=== PATIENT | male | born 1955 | race Caucasian/White ===

== ENCOUNTER → 2023-10-27 07:15 | Outpatient (REF) | payer OTHER, SELFPAY | LOC: RAD 07:15 | PROVIDERS: ATTENDING PHYSICIAN Internal Medicine Cardiovascular Disease; FAMILY PHYSICIAN Internal Medicine | DX: I10 Essential (primary) hypertension (principal); I50.30 Unspecified diastolic (congestive) heart failure; I25.10 Atherosclerotic heart disease of native coronary artery without angina pectoris; I65.23 Occlusion and stenosis of bilateral carotid arteries | CPT/HCPCS: 93880 ==

== ENCOUNTER → 2023-11-23 08:13 | Outpatient (REF) | payer OTHER, SELFPAY | LOC: HWRAD 08:13 | PROVIDERS: ATTENDING PHYSICIAN Surgery Vascular Surgery; FAMILY PHYSICIAN Internal Medicine | DX: I65.23 Occlusion and stenosis of bilateral carotid arteries (principal) | CPT/HCPCS: 70496; 70498; Q9967 ==

== ENCOUNTER → 2023-11-28 13:31 | Outpatient (REF) | payer OTHER, SELFPAY | LOC: HWRAD 13:31 | PROVIDERS: ATTENDING PHYSICIAN Internal Medicine Critical Care Medicine; FAMILY PHYSICIAN Internal Medicine | DX: Z87.891 Personal history of nicotine dependence (principal) | CPT/HCPCS: 71271 ==

== ENCOUNTER 2024-02-07 06:06 | Inpatient (IN) | payer OTHER, SELFPAY ==
[2024-02-02 09:43] VITALS: BMI 37.9
[2024-02-02 10:22] LABS: % Basophils 0.9 % (0-2); % Eosinophils 4.9 % (0-6); % Immature Granulocytes 0.2 % (0-0.5); % Lymphocytes 16.5 % (20.5-51.1); % Monocytes 7.7 % (1.7-9.3); % Neutrophils 69.8 % (42.2-75.2); Absolute Basophils 0.1 10^3/uL (0-0.2); Absolute Eosinophils 0.3 10^3/uL (0-0.7); Absolute Lymphocytes 0.9 10^3/uL (1.2-3.4); Absolute Monocytes 0.4 10^3/uL (0.1-0.6); Hematocrit 44.6 % (39.0-52.0); Hemoglobin 14.7 g/dL (13.0-18.0); Mean Corpuscular Hgb 29.1 pg (27.0-31.0); Mean Corpuscular Volume 88.1 fL (80.0-94.0); Mean Platelet Volume 9.7 fL (7.4-10.4); Nucleated Red Blood Cells % 0 % (-); Platelet Count 169 10^3/uL (130-400); Red Blood Cell Count 5.06 10^6/uL (4.70-6.10); Red Cell Dist. Width 13.5 % (11.5-14.5); White Blood Cell Count 5.7 10^3/uL (4.8-10.8)
[2024-02-02 10:40] LABS: INR 0.97; PT 12.9 Sec (11.4-14.6)
[2024-02-02 10:43] LABS: Blood Urea Nitrogen 22 mg/dl (9-20); Calcium 9.2 mg/dl (8.4-10.2); Carbon Dioxide 29 mmol/L (22-30); Chloride 105 mmol/L (98-107); Estimated Creatinine Clearance 97 ml/min; Glucose 99 mg/dl (70-99); Potassium 4.1 mmol/L (3.5-5.1); Sodium 140 mmol/L (135-145); eGFR > 60.00
[2024-02-07] VITALS (11 sets, daily range): BP systolic 97–192; BP diastolic 53–96; BMI 37.8; BMI 37.7
[2024-02-07] MEDS: NSS 500 IV (06:44)
[2024-02-07] MEDS: PERIDEX 0.12% ORAL RINSE 15 ML PO (06:44)
[2024-02-07] MEDS: BACTROBAN NASAL 1 GRAM NASAL (06:44)
--- NOTE | 2024-02-07 07:10 | PTCARENOTE ---
patient's blood pressure elevated (212/93) and has been since arrival. RN made MD dumont aware, stated anesthesia team will continue to monitor.
--- NOTE | 2024-02-07 07:15 | W.SUR.PREOP ---
Pre-Operative Surgical Note
-
I have examined this patient prior to the performance of the scheduled procedure.
The patient's condition is unchanged from the time of the current History and
Physical and the patient is able to undergo the scheduled procedure.
[2024-02-07 08:58] LABS: ACT-LR - POC 261 Seconds (116-155)
[2024-02-07 09:28] LABS: ACT-LR - POC 277 Seconds (116-155)
--- NOTE | 2024-02-07 10:12 | OR.RPT ---
Operative Report
Operative Report
Date of Operation: 02/07/2024
Pre Op Diagnosis: Asymptomatic right carotid artery stenosis
Post Op Diagnosis: Asymptomatic right carotid artery stenosis
Procedure: RIGHT carotid endarterectomy with patch angioplasty using bovine pericardium
Surgeon: Daniel Cantor III, MD
In Home Caregiver: Steven Mcintyre MD PhD, PGY1
Anesthesia: General
Complications: None
History and Indications for Procedure: 68-year-old male with asymptomatic right carotid artery stenosis
Procedure in Detail: Neal Cash was correctly identified and placed supine on the operating table. After adequate induction of anesthesia the right neck was positioned, prepped and draped in the usual sterile fashion. Preoperative antibiotics
were administered. A timeout procedure was performed with the nursing and anesthesia staff confirming the patients identity as well as the nature and laterality of the procedure.
The carotid bifurcation was marked with ultrasound at the beginning of the case. The incision was planned accordingly. An incision was made along the anterior border of the right sternocleidomastoid muscle. Electrocautery was used to divide the
subcutaneous tissue and platysma. The carotid sheath was entered with sharp dissection. The internal jugular vein was retracted laterally. The vagus nerve was identified and protected throughout the case. The common carotid artery was identified at
the base of this incision and carefully encircled with a vessel loop. The patient was systemically heparinized. The dissection was continued distally towards the carotid bifurcation. The facial vein was skeletonized, ligated and divided between ties
and clips. The proximal external carotid artery was encircled with a vessel loop. The distal internal carotid artery was encircled with a vessel loop at a soft spot on the artery beyond the plaque. The hypoglossal nerve was identified and protected.
The internal vessel loop was secured followed by the common and external. An arteriotomy was made on the distal common carotid artery with an 11-blade. This was extended proximally and distally with De La Torre scissors. The arteriotomy was extended
distally through the plaque to an area of normal appearing internal carotid artery. The distal vessel loop was replaced with a short tip hockey-stick type vascular clamp. An endarterectomy was performed with a [place] elevator in the standard
fashion. The proximal extent of the plaque was transected with scissors. The distal end of the plaque in the internal carotid artery feathered very nicely with no distal intimal flap identified. The plaque extending into the external carotid artery
was everted. Once the plaque was fully removed the endarterectomy plane was irrigated with heparinized saline and any loose fronds of tissue were removed. A pre-cut piece of bovine pericardium was sewn in place using a running 6-0 Prolene suture.
Prior to the completion of the patch the common carotid was allowed to forward bleed and the external was allowed to back bleed. The area under the patch was irrigated with heparinized saline to remove any potential thrombus or debris. The
anastomosis was completed.
The external vessel loop was released first, followed by the common and then the internal. There was an excellent pulse in the distal internal carotid artery. An excellent quality Doppler signal in the distal internal carotid artery was also
confirmed. The patch suture line was closely inspected for hemostasis and was achieved. Protamine was administered. Hemostasis was achieved in the wound bed. The wound was irrigated with saline solution.
The wound was then closed in layers. Sterile dressings were applied. The patient awoke from anesthesia with no immediate neuro deficits and was taken to the PACU in stable condition.
Attestation: I was present and responsible for the entire procedure
Signed:
Daniel Cantor III, MD
[facility]
[phone] (bokk)
--- NOTE | 2024-02-07 10:31 | W.IMMPOSTOP ---
Surgical Immed Post Op Note
-
Primary Surgeon: Dr. Daniel Cantor III, MD
Assisting Surgeon: Dr. Steven Mcintyre MD, PhD (PGY-1)
Pre-op Diagnosis: Right carotid artery stenosis
Post-op Diagnosis: Right carotid artery stenosis
Procedure Performed: Right carotid endarterectomy with bovine patch angioplasty
Anesthesia Type: General
Specimen / Cultures: None
Estimated Blood Loss: 25cc
Complications: None
Operative Findings: The patient was brought to the OR and placed in the supine position. After anesthesia induction, neuromonitoring placement, and placement of a right radial arterial line, ultrasound guidance was used to identify the common
carotid artery, the bifurcation, and proximal external and internal carotid arteries. This was marked at the skin level. The patient was then prepped and draped in usual sterile fashion. After incision, electrocautery and sharp dissection was used
to expose the right common carotid artery. A blue vessel loop was passed around the common carotid for proximal control. Red vessel loops were then passed around the superior thyroid artery, external carotid artery, and internal carotid artery. The
vessels were clamped and arteriotomy was made on the right common carotid artery. This was extended cranially and caudally using fernandez scissors. A freer was used to perform the endarterectomy. Then a piece of bovine pericardial patch was brought to
the field. A running 6-0 prolene suture was used to perform a patch angioplasty. At the completion of the patch angioplasty, the clamps were removed and hemostasis was achieved. Robust doppler signals were heard on the internal and external carotid
arteries. Soft tissues and the skin were closed with suture layers and skin glue on the surface skin. At the conclusion of the case, the patient demonstrated equal and symmetric motor function of his lower and upper extremities and tongue. The
patient was transported to the PACU in stable condition.
[2024-02-07 10:50] LABS: Hemoglobin 13.3 g/dL (13.0-18.0); Mean Corp Hgb Conc. 34.1 g/dL (33.0-37.0); Mean Corpuscular Hgb 29.5 pg (27.0-31.0); Mean Corpuscular Volume 86.5 fL (80.0-94.0); Platelet Count 156 10^3/uL (130-400); Red Blood Cell Count 4.51 10^6/uL (4.70-6.10); Red Cell Dist. Width 13.6 % (11.5-14.5); White Blood Cell Count 8.8 10^3/uL (4.8-10.8)
[2024-02-07 10:58] LABS: INR 1.13; PT 14.3 Sec (11.4-14.6)
[2024-02-07 10:59] LABS: APTT 29.4 Sec (23.4-35.0)
[2024-02-07 11:00] LABS: Blood Urea Nitrogen 19 mg/dl (9-20); Calcium 8.2 mg/dl (8.4-10.2); Carbon Dioxide 28 mmol/L (22-30); Chloride 107 mmol/L (98-107); Estimated Creatinine Clearance 97 ml/min; Glucose 124 mg/dl (70-99); Potassium 3.6 mmol/L (3.5-5.1); Sodium 140 mmol/L (135-145); eGFR > 60.00
[2024-02-07] MEDS: NSS 1000 IV ×2 (11:28→22:55)
--- NOTE | 2024-02-07 11:46 | CON.INTV ---
Consultation
Consultation Request
Date/Time Consultation Requested: 02-07-24
Date/Time Consultation Performed: 02-07-24
Requesting Provider: Dr Cantor
Performing Provider: Dr Bonilla
Reason for Consultation: R CEA
Medical History
-
Chief Complaint: s/p R CEA
History of Present Illness:
Mr James Cash is a 68/M adm 02-06 for planned R CEA.
Seen at ICU postsurgery, awake, on low flow suppl O2, no major complaints
Denies major complaints. Former smoker, on outpatient BD nebs, does not recall pulm f/u
Past Medical History
Past Medical History: Other (see A&P for PMH/PSH)
Social History
Tobacco: Former Smoker
Alcohol: Occasional
Drug: None
Personal:
Living: With Family
Employment: Employed
Family History
Family History: Cancer (F: prostate), Hypertension (M) and Other (M: PD)
Allergies / Home Medications
Allergies
Allergy/AdvReac Type Severity Reaction Status Date / Time
spironolactone Allergy Unknown Verified 01/31/24 09:47
Sulfa (Sulfonamide Allergy severe rash Verified 01/31/24 09:47
Antibiotics)
bee stings Allergy Anaphylaxis Uncoded 01/31/24 09:47
Home Medications
�Medication �Instructions �Recorded �Confirmed �Last Taken �Type
aspirin 81 mg tablet,delayed 81 mg PO DAILY 05/04/10 02/07/24 02/06/24 08:30 History
release
rosuvastatin 40 mg tablet (Crestor) 40 mg PO QPM 08/20/13 02/07/24 02/06/24 08:30 History
clopidogrel 75 mg tablet 75 mg PO DAILY #30 tabs 11/16/17 02/07/24 02/06/24 08:30 Rx
minoxidil 2.5 mg tablet 2.5 mg PO BID 12/13/17 02/07/24 02/06/24 08:30 History
albuterol sulfate 90 mcg/actuation 2 puff inhalation R Q4HPRN PRN sob 10/19/22 01/31/24 Unknown History
aerosol inhaler (ProAir HFA)
carvedilol 12.5 mg tablet (Coreg) 12.5 mg PO BID 10/19/22 02/07/24 02/06/24 20:30 History
dapagliflozin propanediol 10 mg 10 mg PO DAILY 01/31/24 02/07/24 02/03/24 History
tablet (Farxiga)
diphenhydramine HCl 50 mg capsule 50 mg PO HS PRN ALLERGY/BEE STINGS 01/31/24 02/07/24 01/24/24 History
eplerenone 25 mg tablet 25 mg PO DAILY 01/31/24 02/07/24 02/06/24 08:30 History
fluticasone fur. 100 mcg-umeclid 1 inh inhalation DAILY PRN 01/31/24 02/07/24 Unknown History
62.5 mcg-vilant 25 mcg ALLERGIES/SOB
inhalat.powder (Trelegy Ellipta)
furosemide 20 mg tablet 20 mg PO DAILY 01/31/24 02/07/24 02/06/24 08:30 History
Review of Systems
-
All other systems: Negative unless noted
Cardiac: Other (mild incisional pain at R neck)
Vitals / Labs / Diagnostic Testing
Vital Signs
Temp Pulse Resp BP Pulse Ox
97.6 F 53 13 128/69 97
02/07/24 10:27 02/07/24 11:15 02/07/24 11:15 02/07/24 11:15 02/07/24 11:15
Lab Data
02/07/24 10:37
02/07/24 10:37
Laboratory Results
02/07/24
10:37
PT 14.3
INR 1.13
APTT 29.4
Diagnostic Testing:
Physical Exam
-
HEENT: Normocephalic and Moist Mucous Membranes
Cardiovascular: Regular Rhythm, Peripheral Edema (n) and Calf Tenderness (n)
Respiratory: Clear and Non-Labored Respirations
GI: Soft, Non Distended and Non Tender
Neurology: Awake, AO x 3 and No Motor Deficits
Skin: Warm
General: Respiratory Distress (n)
Assessment
-
Assessment:
Mr James Cash is a 68/M adm 02-06 for planned R CEA. Seen at ICU postsurgery, awake, on low flow suppl O2, no major complaints
Impression:
R carotid artery stenosis
S/p R CEA 02-06
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
Cardiac arrest October 2017
Rectal bleeding 2009
RODERICK, on no treatment
HTN
Hyperaldosteronism
CVA/TIA 2009
CKD
HLD
ICM, LVEF 45-50%
Melanoma, s/p Moh's procedures
Depression
Pneumonia Jun 2021
COVID pneumonia November 2021
COPD
Carotid artery disease
Laminectomy
L knee arthroscopic surgery
R hip replacement 2018
Appendectomy
Bilateral inguinal and umbilical hernia repair
Former smoker
Plan:
Postoperative surgical intensive care unit monitoring
Supplemental oxygen as needed
Incentive spirometry
Aspiration precautions
Neuro and vascular checks per protocol
Vascular surgery following-correspondence and operative notes reviewed
DVT prophylaxis
Early nutrition
Early mobilization
Critical care time: 35 min
D/w Mr Cash and COMMUNITY SERVICE AIDE
[2024-02-07] MEDS: TYLENOL 650 MG PO (12:29)
--- NOTE | 2024-02-07 12:30 | PTCARENOTE ---
Pt received from PACU to ICU bed. Pt awake and alert, ALVAREZ with equal strength. Pt SB as per monitor, R curtis castrone zeroed, with + cuff josseline. MAP 76-81, with goal of keeping MAP 70-90. R neck with incision with surgi glue intact. Pt with +PERRL and
equal smile. All pulses intact. NS at 80 ml/hr infusing. Ice pack to neck. Pt on 4l nc, O2 sat=97%, lobes clear bilat, sl decreased at bases. ABD round, obese, +BS's.
--- NOTE | 2024-02-07 14:33 | PTCARENOTE ---
Dr Cantor in to see pt. Pt neuro status remains intact. Pt c/o sl numbness in R arm, which he said he does have off and on from a work accident a few yrs ago. All pulses remain intact. Tylenol which was given earlier did help the sl discomfort
feeling. Dr Cantor seems to feel maybe it could have been a position he was in the OR. Lunch ordered, VSS. R neck inc remains intact, BP 125/63.
[2024-02-07] MEDS: CRESTOR 40 MG PO (18:03)
[2024-02-07] MEDS: LONITEN 2.5 MG PO (20:20)
[2024-02-07] MEDS: HEPARIN 5000 UNITS SC (20:20)
[2024-02-07] MEDS: COREG PO (20:21)
--- NOTE | 2024-02-07 21:45 | PTCARENOTE ---
Rec'd care of patient at shift change. Neuro assessment completed with previous RN. No deficits. Right neck incision approximated; closed with surgical glue. AAOx3. VSS. Right radial tata zeroed and flushed. MAP goal of 70-90. SB with prolonged QT
interval and PVCs on tele monitor. Rate in the 30-50's. PNEUMATIC PRESS HAND notified and parameters placed for Coreg. Attempted to wean to RA. Pulse ox down to 80's. Placed back on 2L nc. IS encouraged. No complaints. Plan of care discussed. Q1hr neuro checks
maintained as ordered.
[2024-02-08] VITALS (8 sets, daily range): BP systolic 81–170; BP diastolic 61–82; BMI 38.6
--- NOTE | 2024-02-08 00:15 | PTCARENOTE ---
No changes in assessment. VSS.
--- NOTE | 2024-02-08 03:48 | DOWNTIME ---
There was a [employer] Client Social Work Lecturer Downtime on 02/08/2024 from 0100 to 02/08/2024 at 0337. Downtime documentation of patient's care, including medication administrations, has been reconciled in the electronic record per guidelines. Refer to the
patient's paper chart under the miscellaneous tab to see printed paper medication records and downtime forms.
[2024-02-08 04:20] LABS: Hematocrit 37.3 % (39.0-52.0); Hemoglobin 12.5 g/dL (13.0-18.0); Mean Corp Hgb Conc. 33.5 g/dL (33.0-37.0); Mean Corpuscular Hgb 29.5 pg (27.0-31.0); Platelet Count 150 10^3/uL (130-400); Red Blood Cell Count 4.24 10^6/uL (4.70-6.10); Red Cell Dist. Width 13.6 % (11.5-14.5); White Blood Cell Count 8.3 10^3/uL (4.8-10.8)
[2024-02-08 04:29] LABS: INR 1.11; PT 14.1 Sec (11.4-14.6)
[2024-02-08 04:30] LABS: APTT 26.5 Sec (23.4-35.0)
[2024-02-08 04:37] LABS: Blood Urea Nitrogen 24 mg/dl (9-20); Calcium 8.5 mg/dl (8.4-10.2); Carbon Dioxide 26 mmol/L (22-30); Chloride 106 mmol/L (98-107); Estimated Creatinine Clearance 82 ml/min; Glucose 119 mg/dl (70-99); Potassium 3.7 mmol/L (3.5-5.1); Sodium 138 mmol/L (135-145); eGFR > 60.00
--- NOTE | 2024-02-08 04:43 | PTCARENOTE ---
Pt's pulse ox dropping to 77% while asleep. Pt verifies hx of RODERICK. Neuro assessment unchanged. VSS.
[2024-02-08] MEDS: INSPRA 25 MG PO (06:16)
[2024-02-08] MEDS: DEMADEX 20 MG PO (06:17)
[2024-02-08] MEDS: LONITEN 2.5 MG PO (06:17)
--- NOTE | 2024-02-08 07:30 | W.PN.INTV ---
Today's Communication / Plan
Recommendations
Disposition per vasc sx
Assessment
-
Assessment:
Mr James Cash is a 68/M adm 02-06 for planned R CEA. Seen at ICU postsurgery, awake, on low flow suppl O2, no major complaints
Impression:
R carotid artery stenosis
S/p R CEA 02-06
Conditions CONTRACTS INTERN:
Cardiac arrest October 2017
Rectal bleeding 2009
RODERICK, on no treatment
HTN
Hyperaldosteronism
CVA/TIA 2009
CKD
HLD
ICM, LVEF 45-50%
Melanoma, s/p Moh's procedures
Depression
Pneumonia Jun 2021
COVID pneumonia November 2021
COPD
Carotid artery disease
Laminectomy
L knee arthroscopic surgery
R hip replacement 2018
Appendectomy
Bilateral inguinal and umbilical hernia repair
Former smoker
Plan:
Postoperative surgical intensive care unit monitoring completed
Supplemental oxygen as needed
Incentive spirometry
Aspiration precautions
Neuro and vascular checks per protocol
Vascular surgery following-correspondence and operative notes reviewed
DVT prophylaxis
Early nutrition
Early mobilization
D/w Mr Cash and LAUNDRY ROUTE DRIVER
D/w MDT
Disposition per adm svce, likely for d/c later today, will sign off then
Subjective Dataa
Subjective Data
Date of Service:
Date of Service: February 08, 2024
Chief Complaint: Stitcher Operator Follow Up
Subjective:
No major events reported overnight
Remains respiratory hemodynamically stable
Denies major complaints at time of visit
Delined this morning
Review of Systems
General: Fever (n), Sweats (n), Chills (n) and Satisfactory Appetite
HEENT: Epistaxis (n) and Dysphagia (n)
Cardiopulmonary: Dyspnea (n), Cough (n), Wheezing (n) and Chest Pain (n)
GI: Abdominal Pain (n), Nausea (n) and Vomiting (n)
Neuro: Weakness (n)
Objective Data
Data Reviewed
Vital Signs / I&O / Oxygen:
Vital Signs
Temp Pulse Resp BP Pulse Ox
97.8 F 53 13 145/67 99
02/08/24 04:10 02/08/24 06:00 02/08/24 06:00 02/08/24 06:17 02/08/24 06:00
Intake and Output
02/07/24 02/08/24 02/09/24
06:59 06:59 06:59
Intake Total 2460 / 2460
Output Total 875 / 875
Balance 1585 / 1585
SaO2 99
Nasal Cannula flow liters per 2
minute
Physical Exam
General: Comfortable
HEENT: Normocephalic and Moist Mucous Membranes
Cardiovascular: Regular Rhythm, Murmur (n) and Other (R neck surgical wound in good condition)
Respiratory: Clear, Non-Labored Respirations and Stridor (n)
GI: Soft, Non Distended and Non Tender
Neurology: Awake, Oriented and No Motor Deficits
Skin: Warm
Labs/Micro/Reports
Lab Data
02/08/24 04:05
02/08/24 04:05
Laboratory Results
02/07/24 02/08/24
10:37 04:05
PT 14.3 14.1
INR 1.13 1.11
APTT 29.4 26.5
--- NOTE | 2024-02-08 07:55 | W.PN.INTV ---
Today's Communication / Plan
Recommendations
IS
Aspiration Precautions
Assessment
-
Assessment:
Mr James Cash is a 68/M adm 02-06 for planned R CEA. Seen at ICU postsurgery, awake, on low flow suppl O2, no major complaints
Impression:
R carotid artery stenosis
S/p R CEA 02-06
Conditions INSTRUMENTATION TECHNOLOGIST:
Cardiac arrest October 2017
Rectal bleeding 2009
RODERICK, on no treatment
HTN
Hyperaldosteronism
CVA/TIA 2009
CKD
HLD
ICM, LVEF 45-50%
Melanoma, s/p Moh's procedures
Depression
Pneumonia Jun 2021
COVID pneumonia November 2021
COPD
Carotid artery disease
Laminectomy
L knee arthroscopic surgery
R hip replacement 2018
Appendectomy
Bilateral inguinal and umbilical hernia repair
Former smoker
Plan:
Postoperative surgical intensive care unit monitoring
Supplemental oxygen as needed
Incentive spirometry
Aspiration precautions
Neuro and vascular checks per protocol
Vascular surgery following-correspondence and operative notes reviewed
DVT prophylaxis
Early nutrition
Early mobilization
Subjective Dataa
Subjective Data
Date of Service:
Date of Service: February 08, 2024
Chief Complaint: Lead Sharepoint Developer Follow Up
Subjective:
Patient was examined at bedside, no acute overnight events.
Objective Data
Data Reviewed
Vital Signs / I&O / Oxygen:
Vital Signs
Temp Pulse Resp BP Pulse Ox
97.8 F 53 13 145/67 99
02/08/24 04:10 02/08/24 06:00 02/08/24 06:00 02/08/24 06:17 02/08/24 06:00
Intake and Output
02/07/24 02/08/24 02/09/24
06:59 06:59 06:59
Intake Total 2460 / 2460
Output Total 875 / 875
Balance 1585 / 1585
SaO2 99
Nasal Cannula flow liters per 2
minute
Physical Exam
General: Comfortable
HEENT: Normocephalic
Cardiovascular: S1-S2 and Regular Rhythm
Respiratory: Clear
GI: Soft, Non Distended and Non Tender
Neurology: Awake, Alert and Oriented
Labs/Micro/Reports
Lab Data
02/08/24 04:05
02/08/24 04:05
Laboratory Results
02/07/24 02/08/24
10:37 04:05
PT 14.3 14.1
INR 1.13 1.11
APTT 29.4 26.5
[2024-02-08] MEDS: COREG 12.5 MG PO (08:35)
[2024-02-08] MEDS: HEPARIN 5000 UNITS SC (08:35)
[2024-02-08] MEDS: FARXIGA 10 MG PO (08:35)
[2024-02-08] MEDS: ASPIR LOW (ENTERIC COATED) 81 MG PO (08:35)
[2024-02-08] MEDS: PLAVIX 75 MG PO (08:35)
--- NOTE | 2024-02-08 08:38 | W.PN.VS ---
Addendum entered and electronically signed by Raheem Barcenas MD 02/08/24 08:56:
Seen and examined with KASSANDRA Farah. Agree with findings as noted below. Patient without significant complaints. Right neck incision is clean dry and intact. No hematoma. Neurologically no focal deficits. Moves all extremities well. Tongue
midline. Plan/as discussed and noted below.
Original Note:
Today's Communication / Plan
-
Patient seen and examined at bedside with Dr. Raheem Barcenas, below plan reviewed with attending.
Assessment/Plan
-
Assessment: 68-year-old male POD #1 right carotid endarterectomy for right carotid stenosis
Plan:
DC arterial line
DC IV fluids
OOB to chair with progression ambulation as tolerated
Continue low-cholesterol diet
Possible discharge to home later this afternoon if he continues to tolerate p.o. diet and initiation of ambulation
Subjective Data
-
Date of Service: February 08, 2024
Patient seen and examined at bedside, offers no complaints. Denies headache, nausea, fever, chills, and difficulty swallowing. Reports eagerness for discharge to home.
Objective Data
-
Vital Signs
Temp Pulse Resp BP Pulse Ox
97.8 F 55 13 145/67 99
02/08/24 04:10 02/08/24 08:35 02/08/24 06:00 02/08/24 06:17 02/08/24 06:00
Intake and Output
02/07/24 02/08/24 02/09/24
06:59 06:59 06:59
Intake Total 2460 / 2460
Output Total 875 / 875
Balance 1585 / 1585
Intake:
Oral fluids 920 / 920
IV fluids (Total) 1540 / 1540
NSS 1440 / 1440
Normosol 100 / 100
Output:
Urine, Voided 875 / 875
Lab Results
02/08/24 04:05
02/08/24 04:05
Calcium 8.5 mg/dl (8.4-10.2) 02/08/24 04:05
Physical Exam
-
AAOx3, NAD, resting in bed comfortably
Face symmetrical, tongue midline, right neck surgical incision CDI, no evidence of hematoma, surrounding skin soft, suture line well-approximated, Exofin glue intact
No tachycardia
No dyspnea
ABD rotund, nondistended
Bilateral lower EXTR without edema, 5/5 strength at bilateral upper and lower extremities
--- NOTE | 2024-02-08 10:18 | PTCARENOTE ---
Received pt awake and alert.Speech is appropriate.OOB to chair.Gait is steady.Denies pain.SR noted.A Line discontinued as ordered.POX 94% on RA.Lungs with decreased breath sounds bibasilar.Appetite good.Voiding yellow urine.Right neck incision
intact with surgical adhesive.Plan of care discussed.
--- NOTE | 2024-02-08 10:29 | PTCARENOTE ---
Pt ambulated around the unit.Gait is steady.
--- NOTE | 2024-02-08 10:54 | CM ---
human resources office manager reviewed patient's chart and met with patient and patient lives with his spouse in a 2 story home with 2 steps to enter, patient is independent with adl's and ambulation, no dme, patient drives, patient has a prescription plan and uses
[facility] pharmacy.
PCP: Dr. Nolan
Plan; Home today no needs.
--- NOTE | 2024-02-08 14:19 | W.DS.TRANS ---
DC Summary - Fine Arts Teacher
-
Discharge Instructions:
Discharge Diagnosis/Procedures Right carotid endarterectomy
Diet As tolerated
Activity No strenuous activity
Driving Restrictions Not until seen by your Dr
Bathing Restrictions OK to Shower
Instructions:
Stand-Alone Forms: DC Instr - Vascular OR
Changes to Home Medications: No
Discharge Medications:
DC Medications w/original date entered in [employer]
aspirin 81 mg tablet,delayed release 81 mg PO DAILY Blood Clot Prevention/Tx 05/04/10
rosuvastatin 40 mg tablet (Crestor) 40 mg PO QPM High Cholesterol 08/20/13
clopidogrel 75 mg tablet 75 mg PO DAILY #30 tabs 11/16/17
minoxidil 2.5 mg tablet 2.5 mg PO BID Heart Disease/Condition 12/13/17
albuterol sulfate 90 mcg/actuation aerosol inhaler (ProAir HFA) 2 puff inhalation R Q4HPRN PRN sob 10/19/22
carvedilol 12.5 mg tablet (Coreg) 12.5 mg PO BID Heart Disease/Condition 10/19/22
dapagliflozin propanediol 10 mg tablet (Farxiga) 10 mg PO DAILY Heart Disease/Condition 01/31/24
diphenhydramine HCl 50 mg capsule 50 mg PO HS PRN ALLERGY/BEE STINGS 01/31/24
eplerenone 25 mg tablet 25 mg PO DAILY Heart Disease/Condition 01/31/24
fluticasone fur. 100 mcg-umeclid 62.5 mcg-vilant 25 mcg inhalat.powder (Trelegy Ellipta) 1 inh inhalation DAILY PRN ALLERGIES/SOB 01/31/24
torsemide 20 mg tablet 20 mg PO DAILY Fluid Retention/Swelling 02/07/24
Home Medication Changes
Pending Results: No
--- NOTE | 2024-02-08 14:19 | W.DCSUMMARY ---
Discharge Summary
Discharge Data
Date of Admission: 02/07/24
Date of Discharge: 02/08/24
-
Pending Results: No
Hospital Course
Attending: Sakshi
Consultants: Pulmonary medicine
Allergies: bee venom, spironolactone, sulfa
Procedure with date: 02/07/2024: Right carotid endarterectomy with bovine pericardial patch angioplasty and EEG monitoring
History of present illness: The patient is an 68-year-old male with multiple medical conditions including: carotid stenosis, cardiac arrest, rectal bleed, obstructive sleep apnea, hypertension, hyperaldosteronism, herniated disc, CVA, metabolic
syndrome X, chronic kidney disease type I/II, dyslipidemia, ischemic cardiomyopathy, malignant melanoma, depression, COPD, umbilical hernia repair, bilateral inguinal hernia repairs, appendectomy, laminectomy, Mohs procedure. Patient presented on
02/07/2024 for scheduled procedure with Dr. Cantor. Patient presented at baseline health with no reports of recent illness or trauma.
Hospital Course: Briefly, the patient underwent scheduled carotid endarterectomy without complications, and recovered in PACU. Following recovery phase one and two patient was transferred to intensive care unit per protocol for continued hemodynamic
monitoring. Wildlife Ecology Professor consulted to aid in medical management from a critical care perspective. POD #1 (02/08/2024) Patient neurologically intact, face symmetrical, and tolerating PO diet. Surgical neck site clean, dry, and intact with suture line
well approximated and soft. No evidence of hematoma. Arterial line and IV fluids discontinued. Patient able to ambulate without difficulty or incident. Patient stable for discharge to home.
Prescriptions and follow up appointment are included in the DC summary restaurant cook note. All instructions were given to the patient in both written and verbal form and the patient expressed understanding.
Discharge Plan
-
Patient Disposition: Home (Routine Discharge)
Discharge Diagnosis/Procedures: Right carotid endarterectomy
Condition: Good
Diet: As tolerated
Activity: No strenuous activity
Driving Restrictions: Not until seen by your Dr
Bathing Restrictions: OK to Shower
Activity Restrictions/Additional Instructions:
If you experience severe constant headache, weakness to an arm or leg, change in vision, trouble speaking or any stroke-like symptom, call 911 immediately
If you experience swelling, increased bruising, drainage from neck site, or fever, please call the office
Stand Alone Forms: DC Instr - Vascular OR
Referrals:
Lia Scott PA-C [Specified Professional Personl] - 02/21/24 9:30 am (Vascular surgery follow-up)
Janine Nolan MD [Family Provider] -
Prescriptions:
Continued
aspirin 81 MG tablet,delayed release (DR/EC)
81 mg PO DAILY
rosuvastatin [Crestor] 40 MG tablet
40 mg PO QPM
clopidogrel 75 MG tablet
75 mg PO DAILY Qty: 30 11RF
minoxidil 2.5 MG tablet
2.5 mg PO BID
carvedilol [Coreg] 12.5 mg Tablet
12.5 mg PO BID
albuterol sulfate [ProAir HFA] 90 mcg/actuation Hfa Aerosol Inhaler
2 puff INHALATION R Q4HPRN PRN (Reason: sob)
diphenhydramine HCl 50 mg Capsule
50 mg PO HS PRN (Reason: ALLERGY/BEE STINGS)
eplerenone 25 mg Tablet
25 mg PO DAILY
dapagliflozin propanediol [Farxiga] 10 mg Tablet
10 mg PO DAILY
Trelegy Ellipta 100-62.5-25 mcg Blister With Device
1 inh INHALATION DAILY PRN (Reason: ALLERGIES/SOB)
torsemide 20 mg Tablet
20 mg PO DAILY
Discharge Orders:
Discharge Patient (As Directed); Ordered 02/08/24
Ordered By: Janis Hoffman
Discharge Date and Time
Discharge Date/Time: 02/08/24 13:00
Print Language: GREENLANDIC
== END 2024-02-08 13:00 | disposition home or self-care (01) | DRG 39 ==
LOC: ICU 06:06
PROVIDERS: Nurse Practitioner; ADMITTING PHYSICIAN Surgery Vascular Surgery; CONSULT PHYSICIAN Internal Medicine Pulmonary Disease; FAMILY PHYSICIAN Internal Medicine
PROC: 03UH0KZ Supplement Right Common Carotid Artery with Nonautologous Tissue Substitute, Open Approach (ICD-10-PCS; 2024-02-07)
PROC: 03CH0ZZ Extirpation of Matter from Right Common Carotid Artery, Open Approach (ICD-10-PCS; 2024-02-07)
DX: I65.21 Occlusion and stenosis of right carotid artery (principal); I12.9 Hypertensive chronic kidney disease with stage 1 through stage 4 chronic kidney disease, or unspecified chronic kidney disease; N18.2 Chronic kidney disease, stage 2 (mild); J44.9 Chronic obstructive pulmonary disease, unspecified; E88.810 Metabolic syndrome; F32.A Depression, unspecified; E78.5 Hyperlipidemia, unspecified; E26.9 Hyperaldosteronism, unspecified; I25.5 Ischemic cardiomyopathy; G47.33 Obstructive sleep apnea (adult) (pediatric); Z87.891 Personal history of nicotine dependence; Z86.73 Personal history of transient ischemic attack (TIA), and cerebral infarction without residual deficits; Z86.74 Personal history of sudden cardiac arrest; Z79.02 Long term (current) use of antithrombotics/antiplatelets; Z79.82 Long term (current) use of aspirin
CPT/HCPCS: 35301; 36415; 71045; 80048; 85025; 85027; 85610; 85730; 86850; 86900; 86901; 87070; 93005

== ENCOUNTER 2024-02-12 09:11 | Emergency (ER) | payer OTHER, SELFPAY ==
[2024-02-12 09:15] VITALS: BP 197/96
[2024-02-12 09:38] VITALS: BP 188/98
--- NOTE | 2024-02-12 09:38 | ED.GENMED ---
History of Present Illness
General
Chief Complaint: Post Operative Problem(s)
Source: patient and physician
Exam Limitations: none
Time Seen by Provider: 02/12/24 09:22
Nursing documentation reviewed up to this point in time: agreed with
History of Present Illness
History of Present Illness:
68-year-old male presents emergency department complaining of right neck swelling since Tuesday. He had a carotid endarterectomy 5 days ago. This was done by Dr. Cantor. He was sent to emergency department by Dr. Barcenas.
Past History
Past History
ED Past Medical History: CVA, HTN, Hypercholesterolemia and Other (Rectal bleeding, Tib/Fib Fracture L leg, Herniated and torn disc)
ED Past Surgical History: Other (L quad tendon repair)
Social History
Tobacco: Smoker
Alcohol: Occasional
Drug: None
Personal:
Living: with family
Employment: Employed
Family History
Family History: Hypertension
Review of Systems
Review of Systems
Allergies reviewed?: Yes
All Other Systems: Not applicable
Constitutional: Reports no symptoms
EENT: Reports other (Neck swelling, some difficulty swallowing)
Respiratory: Reports no symptoms
Cardiac: Reports no symptoms
ABD/GI: Reports no symptoms
: Reports no symptoms
Musculoskeletal: Reports no symptoms
Skin: Reports no symptoms
Neurological: Reports no symptoms
Endocrine: Reports no symptoms
Hematologic/Lymphatic: Reports no symptoms
Psychiatric: Reports no symptoms
Phy Exam
Physical Exam
Physical Exam:
Physical Exam
General: Hypertensive, afebrile
Neck: supple. no meningeal signs. normal posterior pharynx, right CEA incision scar, swelling
Heart: s1/s2 regular rate and rhythm, no murmur. equal radial
pulses.
HEENT: Pupils equal round reactive to light, EOMI
Lungs: no acute respiratory distress. clear bilaterally
Abdomen: normal bowel sounds. not tender. no CVAT
Neuro: alert and oriented. no focal neurological deficits cranial nerves II through XII intact
Skin: no rash
Psychiatric: well kept. interactive and cooperative
Extremities: no edema. no calf tenderness. negative homans. good distal pulses
Course
Orders/Labs/Results
Orders:
Orders
02/12/24 09:23
CT Head & Neck Angio W/wo IV Urgent
Comment:
Reason For Exam: right CEA 02/06, worsening neck swelling since Tue
Cardiac Monitoring- Treatment ONCE
Pulse Ox/cont/shift [RESP] Stat
Quantity: 1
02/12/24 09:25
IV Insert/Care/Rem.- Treatment PRN
02/12/24 09:39
Type+Screen Urgent
Complete Blood Count/With Diff Urgent
Comprehensive Metabolic Panel Urgent
PTT Urgent
Prothrombin Time Urgent
02/12/24 10:09
Carvedilol [Coreg] 12.5 mg PO NOW STA
Abnormal Lab Results
02/12/24
09:39
Absolute Lymphs (auto) 0.9 L 10^3/uL
(1.2-3.4)
Lymphocytes % 13.1 L %
(20.5-51.1)
Glucose 104 H mg/dl
(70-99)
02/12/24 09:39
02/12/24 09:39
Vital Signs
Initial and Last Documented VS:
Initial Vital Signs
Temp Pulse Resp BP Pulse Ox
98.2 F 78 16 197/96 96
02/12/24 09:15 02/12/24 09:15 02/12/24 09:15 02/12/24 09:15 02/12/24 09:15
Last Documented Vital Signs
Temp Pulse Resp BP Pulse Ox
98.2 F 56 16 197/104 93
02/12/24 09:15 02/12/24 11:30 02/12/24 11:30 02/12/24 11:22 02/12/24 11:30
MDM/Problems Addressed
Differential Diagnosis Includes:
Pseudoaneurysm, postoperative hemorrhage
MDM/Problems Addressed:
68-year-old male with right-sided neck swelling postoperative from CEA. CTA shows mild soft tissue edema, no airway compromise, no pseudoaneurysm. Patient stable for discharge.
Chronic conditions affecting care: Cardiomyopathy and COPD
Acute Exacerbation and/or Progression of Chronic Illness: Cardiomyopathy and COPD
*Radiology
Radiology exam reviewed: radiology read reviewed (CT angiography head and neck no signs pseudoaneurysm)
*Pulse Oximetry
Patient hypoxic: no
*EKG
Interpreted by ED Provider?: NA
*Marshmallow Runner Interpretation
Rate: Marshmallow Runner- N/A
*Critical Care Note
Total Time (30-74mins, 75-104mins- exclusive of procedures): Not Applicable
Data Reviewed
Review of Other/Old Records Reveals: Operative Reports (Right CEA on 02/07/[address] Cantor)
Source: records
Patient Management
Social determinants of health affecting care: Strong social support
Discussion with other providers: University Administrative Assistant (Vascular surgery)
Escalation/DeEscalation of care consider admission/obs:
Admit not indicated
ED Attending Note
-
Portions of this chart may have been created with voice recognition software.� Occasional wrong word or��sound alike� substitutions may have occurred due to the inherent limitations of voice recognition software.
Discharge Plan
Departure
Patient with high blood pressure during this ER visit?: Yes
Discharge Problem:
Neck swelling, Hypertension
Instructions: Wound Care (DC), BLOOD PRESSURE
Prescriptions:
No Action
aspirin 81 MG tablet,delayed release (DR/EC)
81 mg PO DAILY
rosuvastatin [Crestor] 40 MG tablet
40 mg PO QPM
clopidogrel 75 MG tablet
75 mg PO DAILY Qty: 30 11RF
minoxidil 2.5 MG tablet
2.5 mg PO BID
carvedilol [Coreg] 12.5 mg Tablet
12.5 mg PO BID
albuterol sulfate [ProAir HFA] 90 mcg/actuation Hfa Aerosol Inhaler
2 puff INHALATION R Q4HPRN PRN (Reason: sob)
diphenhydramine HCl 50 mg Capsule
50 mg PO HS PRN (Reason: ALLERGY/BEE STINGS)
eplerenone 25 mg Tablet
25 mg PO DAILY
dapagliflozin propanediol [Farxiga] 10 mg Tablet
10 mg PO DAILY
Trelegy Ellipta 100-62.5-25 mcg Blister With Device
1 inh INHALATION DAILY PRN (Reason: ALLERGIES/SOB)
torsemide 20 mg Tablet
20 mg PO DAILY
Referrals:
Daniel Cantor III, MD [Active] - Call in 1-3 days for appt
Janine Nolan MD [Family Provider] -
Interventions
Interventions:
*Risk Screen - Suicide Last Done: 02/12/24 09:26
*General Assessment Last Done: 02/12/24 09:26
*Neglect/Abuse Screening Last Done: 02/12/24 09:26
ED- Fall Risk Assessment Last Done: 02/12/24 09:26
*ED COVID-19 Vaccine History Last Done: 02/12/24 09:15
ED-Skin Assessment Last Done: 02/12/24 09:26
Discharge Date and Time
Print Language: NIGERIAN
[2024-02-12 09:55] LABS: % Basophils 0.6 % (0-2); % Eosinophils 3.8 % (0-6); % Immature Granulocytes 0.3 % (0-0.5); % Lymphocytes 13.1 % (20.5-51.1); % Monocytes 7.9 % (1.7-9.3); % Neutrophils 74.3 % (42.2-75.2); Absolute Eosinophils 0.3 10^3/uL (0-0.7); Absolute Lymphocytes 0.9 10^3/uL (1.2-3.4); Absolute Monocytes 0.6 10^3/uL (0.1-0.6); Absolute Neutrophils 5.3 10^3/uL (1.4-6.5); Hematocrit 42.1 % (39.0-52.0); Hemoglobin 14.3 g/dL (13.0-18.0); Mean Corpuscular Hgb 28.8 pg (27.0-31.0); Mean Corpuscular Volume 84.9 fL (80.0-94.0); Mean Platelet Volume 9.6 fL (7.4-10.4); Nucleated Red Blood Cells % 0 % (-); Platelet Count 167 10^3/uL (130-400); Red Blood Cell Count 4.96 10^6/uL (4.70-6.10); Red Cell Dist. Width 13.3 % (11.5-14.5); White Blood Cell Count 7.1 10^3/uL (4.8-10.8)
[2024-02-12 10:00] VITALS: BP 178/92
[2024-02-12 10:01] LABS: APTT 27.4 Sec (23.4-35.0)
[2024-02-12 10:06] LABS: ALT (SGPT) 16 U/L (0-50); AST (SGOT) 17 U/L (17-59); Albumin 4.4 g/dl (3.5-5.0); Alkaline Phosphatase 61 U/L (38-126); Blood Urea Nitrogen 18 mg/dl (9-20); Calcium 9.3 mg/dl (8.4-10.2); Carbon Dioxide 30 mmol/L (22-30); Chloride 104 mmol/L (98-107); Glucose 104 mg/dl (70-99); Potassium 3.8 mmol/L (3.5-5.1); Sodium 142 mmol/L (135-145); Total Bilirubin 1.3 mg/dl (0.2-1.3); Total Protein 6.8 g/dl (6.3-8.2); eGFR > 60.00
[2024-02-12] MEDS: COREG 12.5 MG PO (10:15)
[2024-02-12 11:22] VITALS: BP 197/104
--- NOTE | 2024-02-12 11:22 | W.PN.UPDATE ---
Update Note
Progress Note Update
68-year-old male known to service status post right CEA with bovine pericardial patch by Sakshi on 02/07/2024. He called the answering service today noted progressive right neck swelling that was causing him some discomfort especially when he was
sleeping. Denied any pulsatile mass. Denied any drainage. No fevers. I asked him to come to the emergency room for evaluation. Seen and evaluated now in the emergency room. He notes that it was a little bit swollen postoperatively but it seems
to have increased over the last day or 2. No severe pain but is uncomfortable for him at night. Whether or not he is laying on that side. Again no fevers, no drainage. No neurologic symptoms. Denies any difficulty swallowing or difficulty
breathing.
On exam his right neck incision is clean dry and intact. He does have a moderate hematoma just deep to the incision. The incision is fully intact. There is no drainage. Slightly firm, but tissue surrounding is soft. In addition deeper tissues
are soft to palpation. No pulsatile mass. Neurologically no focal deficits, moves all extremities well, tongue midline. CT angiogram ordered and reviewed by me. May be mild hematoma/soft tissue fluid just anterior/adjacent to the
sternocleidomastoid muscle. No large hematoma collection or pocket. Certainly no evidence of pseudoaneurysm. No active extravasation.
Plan/ Mild to moderate postoperative subcutaneous hematoma right neck. Not tense. No stretching of skin. No swallowing difficulty or dyspnea. Discussed findings of CT with patient. I think reasonable to discharge and observe as outpatient. I
alternatively offered him inpatient admission and observation overnight with possible washout if enlarging. He understands all and wishes to go home. He will call us tomorrow in the office to let us know how he is progressing. If anything worsens
or he has any drainage I instructed him to immediately come back to the emergency room.
== END 2024-02-12 12:46 | disposition home or self-care (01) ==
LOC: EMR 09:11
PROVIDERS: EMERGENCY PHYSICIAN Emergency Medicine; FAMILY PHYSICIAN Internal Medicine
DX: R22.1 Localized swelling, mass and lump, neck (principal); R13.10 Dysphagia, unspecified; I11.0 Hypertensive heart disease with heart failure; I50.9 Heart failure, unspecified; E78.00 Pure hypercholesterolemia, unspecified; I25.10 Atherosclerotic heart disease of native coronary artery without angina pectoris; G47.30 Sleep apnea, unspecified; M19.90 Unspecified osteoarthritis, unspecified site; F17.200 Nicotine dependence, unspecified, uncomplicated; Z85.820 Personal history of malignant melanoma of skin; Z86.73 Personal history of transient ischemic attack (TIA), and cerebral infarction without residual deficits; Z86.74 Personal history of sudden cardiac arrest; Z98.890 Other specified postprocedural states; Z88.2 Allergy status to sulfonamides; Z88.8 Allergy status to other drugs, medicaments and biological substances; Z91.030 Bee allergy status
CPT/HCPCS: 99285; 94760; 70496; 70498; 80053; 85025; 85610; 85730; 86850; 86900; 86901; Q9967

== ENCOUNTER → 2024-03-12 08:50 | Outpatient (REF) | payer OTHER, SELFPAY | LOC: RAD 08:50 | PROVIDERS: ATTENDING PHYSICIAN Physician Assistant; FAMILY PHYSICIAN Internal Medicine | DX: I65.23 Occlusion and stenosis of bilateral carotid arteries (principal) | CPT/HCPCS: 93880 ==

== ENCOUNTER → 2024-06-06 09:22 | Outpatient (REF) | payer OTHER, SELFPAY | LOC: RCS 09:22 | PROVIDERS: ATTENDING PHYSICIAN Internal Medicine Cardiovascular Disease; FAMILY PHYSICIAN Internal Medicine | DX: I50.30 Unspecified diastolic (congestive) heart failure (principal); I25.10 Atherosclerotic heart disease of native coronary artery without angina pectoris | CPT/HCPCS: 93306; Q9950 ==

== ENCOUNTER 2024-06-11 13:09 | Inpatient (IN) | payer OTHER, SELFPAY ==
[2024-06-11] VITALS (39 sets, daily range): BP systolic 90–238; BP diastolic 63–143; PULSE 2–67; BMI 37.1
--- NOTE | 2024-06-11 10:34 | ED.GENMED ---
History of Present Illness
<Lul Palma PA-C - Last Filed: 06/11/24 15:25>
General
Chief Complaint: Breathing Problem
Time Seen by Provider: 06/11/24 10:33
History of Present Illness
History of Present Illness:
68-year-old male with history of COPD, CHF, CAD, hypertension, and hyperlipidemia presents to the emergency department for evaluation of gradually worsening shortness of breath over the past month. States that this morning it became abruptly worse
which prompted him to call 911. He denies any chest pain. Has a dry cough that is nonproductive. No fevers, chills but is profoundly sweaty on arrival. Denies any new leg swelling. States he has been compliant with his home medications. He is
on aspirin but no anticoagulants. Had an echocardiogram 5 days ago that showed no acute change from prior
Past History
<Lul Palma PA-C - Last Filed: 06/11/24 15:25>
Past History
ED Past Medical History: CVA, HTN, Hypercholesterolemia and Other (Rectal bleeding, Tib/Fib Fracture L leg, Herniated and torn disc)
ED Past Surgical History: Other (L quad tendon repair)
Social History
Tobacco: Smoker
Alcohol: Occasional
Drug: None
Personal:
Living: with family
Employment: Employed
Family History
Family History: Hypertension
Review of Systems
<Lul Palma PA-C - Last Filed: 06/11/24 15:25>
Review of Systems
Allergies reviewed?: Yes
All Other Systems: ROS reviewed and negative except as documented in HPI and ROS
Phy Exam
<Lul Palma PA-C - Last Filed: 06/11/24 15:25>
Physical Exam
Physical Exam:
GEN: Ill-appearing, diaphoretic, acute respiratory distress
Eyes: PERRLA, EOMs intact, no scleral icterus
HENT: NCAT, unable to assess for JVD due to body habitus
Lungs: Tachypneic with accessory muscle use, trace wheezing in the bases but grossly diminished breath sounds
Cardiac: RRR, no M/R/G, moderate peripheral edema
Abdomen: Protuberant, soft
Neuro: AO x 3
MSK: No gross deformity or ecchymosis. No edema. No digital clubbing
Skin: No rashes, petechiae. Normal color, no pallor or jaundice.
Psych: Calm, cooperative, proper hygiene
Scores
<Lul Palma PA-C - Last Filed: 06/11/24 15:25>
Heart Failure Risk
Heart Failure Risk Score: Yes
History of Stroke or TIA: No
History of intubation for respiratory distress: Yes
Heart rate on ED arrival >/= 110: Yes
SaO2 <90% on arrival on room air: Yes
HR >/=110 during 3min walk test (or too ill to perform test): Yes
ECG has acute ischemic changes: No
Urea >/=12mmol/L (BUN 33.6mg/dL): Yes
Serum CO2>/=35mmol/L: No
Troponin I or T elevated to [place] Level (0.4mg/dL): Yes
NT-proBNP >/=5,000ng/L (5,000pg/ml): No
HF Risk Score: 8
Admission Status: VERY HIGH RISK 81.2% Consider admission to hospital
Course
<Lul Palma PA-C - Last Filed: 06/11/24 15:25>
Orders/Labs/Results
Orders:
Orders
06/11/24 10:26
CXR Port [CR Chest Portable - 1 View] Urgent
Comment:
Reason For Exam: sob
Reason Study Needs to be Portable: Unable to Transport
06/11/24 10:30
Electrocardiogram (*1) Stat
Reason for Study: Other
Other Reason for Exam: chest pain
Cardiac Monitoring- Treatment ONCE
EKG- Treatment ONCE
IV Insert/Care/Rem.- Treatment PRN
Bipap [RESP] Stat
Patient to use own unit?: No
Inspiratory Pressure (cm H2O): 12
Expiratory Pressure (cm H2O): 5
O2 Therapy [RESP] Stat
Titrate/Wean O2 to maintain O2 sat greater than (%): 94
Pulse Ox/cont/shift [RESP] Stat
Quantity: 1
06/11/24 10:33
Albuterol Nebs [Ventolin Nebules] 7.5 mg .ROUTE .STK-MED ONE
Furosemide [Lasix] 80 mg IV NOW STA
Ipratropium Nebs [Atrovent Nebules] 1 mg .ROUTE .STK-MED ONE
06/11/24 10:34
Furosemide [Lasix] 100 mg .ROUTE .STK-MED ONE
Nitroglycerin 100 mg/250 ml [Nitroglycerin Premix] 100 mg in 250 ml .ROUTE .STK-MED
06/11/24 10:37
Basic Metabolic Panel Urgent
Complete Blood Count/With Diff Urgent
NT-proBNP Urgent
Troponin I Urgent
06/11/24 10:45
Nitroglycerin 100 mg/250 ml [Nitroglycerin Premix] 100 mg in 250 ml IV PER PROTOCOL
Initial dose in mcg/min, then titrate:: 80
Titrate to keep:: SBP < 160 mmHg
Titrate by mcg/min:: 5 mcg/min, may increase by 10 mcg/min if dose > 20 mcg/min
Frequency of titrations (minutes):: every 3-5 minutes
Maximum dose in mcg/min:: 200
Begin to taper infusion when:: Remained at goal for 2hrs
Taper by mcg/min:: 5 mcg/min
Frequency of taper (minutes) if patient maintains goal:: 30
Taper to off?: Yes
If infusion off & no longer maintaining goal:: Contact Provider
06/11/24 12:43
Admit/Transfer Patient As Directed
Co-Sign Provider:
Level of Care: Inpatient admission
Assign to:: IMU- Intermediate Care
Physician / Group: Juliette
Diagnosis: CHF
Reason for Hospitalization: IV diuretics
Expected length of stay greater than two midnights?: Yes
ELOS- Estimated Length of Stay in days: 3
I certify the patient meets the requirements for IP care: Yes
PRN Pain Medication Management As Directed
May give lesser potent ordered pain med per pt: Yes
preference::
Protocol:: Medication orders for pain may be administered in a
manner that supports deferring to patient preference
when the pt is:
- Requesting an ordered lesser potent pain medication.
Least to most potent pain medications are defined
as: acetaminophen < NSAID < tramadol < opioids
(morphine, oxycodone, hydromorphone).
- Requesting a lesser dose of the same medication IF
ORDERED.
- Requesting a less intrusive route of administration
if both routes are prescribed by the provider (PO <
IV).
06/11/24 12:45
Code Status As Directed
Resuscitation Status: Full Code
06/11/24 14:46
Troponin I Q6H
06/11/24 Dinner
Cholesterol Lowering
At Your Request: Full Participation
Cholesterol Lowering: Sodium, 2 Gram
06/11/24 20:30
Troponin I Q6H
Abnormal Lab Results
06/11/24
10:37
WBC 17.0 H 10^3/uL
(4.8-10.8)
RBC 6.13 H 10^6/uL
(4.70-6.10)
Hct 53.7 H %
(39.0-52.0)
MCHC 32.0 L g/dL
(33.0-37.0)
Abs Immat Gran (auto) 0.1 H 10^3/uL
(0-0.05)
Absolute Neuts (auto) 12.7 H 10^3/uL
(1.4-6.5)
Absolute Monos (auto) 0.8 H 10^3/uL
(0.1-0.6)
Lymphocytes % 15.7 L %
(20.5-51.1)
BUN 25 H mg/dl
(9-20)
Glucose 191 H mg/dl
(70-99)
Troponin I 0.062 H* ng/ml
06/11/24 10:37
06/11/24 10:37
Vital Signs
Initial and Last Documented VS:
Initial Vital Signs
Pulse Pulse Ox
98 91
06/11/24 10:26 06/11/24 10:26
Last Documented Vital Signs
Pulse Resp BP Pulse Ox
80 14 143/83 99
06/11/24 14:00 06/11/24 14:00 06/11/24 14:00 06/11/24 14:00
<Kye Hinkle MD - Last Filed: 06/11/24 13:06>
Orders/Labs/Results
Orders:
Orders
06/11/24 10:26
CXR Port [CR Chest Portable - 1 View] Urgent
Comment:
Reason For Exam: sob
Reason Study Needs to be Portable: Unable to Transport
06/11/24 10:30
Electrocardiogram (*1) Stat
Reason for Study: Other
Other Reason for Exam: chest pain
Cardiac Monitoring- Treatment ONCE
EKG- Treatment ONCE
IV Insert/Care/Rem.- Treatment PRN
Bipap [RESP] Stat
Patient to use own unit?: No
Inspiratory Pressure (cm H2O): 12
Expiratory Pressure (cm H2O): 5
O2 Therapy [RESP] Stat
Titrate/Wean O2 to maintain O2 sat greater than (%): 94
Pulse Ox/cont/shift [RESP] Stat
Quantity: 1
06/11/24 10:33
Albuterol Nebs [Ventolin Nebules] 7.5 mg .ROUTE .STK-MED ONE
Furosemide [Lasix] 80 mg IV NOW STA
Ipratropium Nebs [Atrovent Nebules] 1 mg .ROUTE .STK-MED ONE
06/11/24 10:34
Furosemide [Lasix] 100 mg .ROUTE .STK-MED ONE
Nitroglycerin 100 mg/250 ml [Nitroglycerin Premix] 100 mg in 250 ml .ROUTE .STK-MED
06/11/24 10:37
Basic Metabolic Panel Urgent
Complete Blood Count/With Diff Urgent
NT-proBNP Urgent
Troponin I Urgent
06/11/24 10:45
Nitroglycerin 100 mg/250 ml [Nitroglycerin Premix] 100 mg in 250 ml IV PER PROTOCOL
Initial dose in mcg/min, then titrate:: 80
Titrate to keep:: SBP < 160 mmHg
Titrate by mcg/min:: 5 mcg/min, may increase by 10 mcg/min if dose > 20 mcg/min
Frequency of titrations (minutes):: every 3-5 minutes
Maximum dose in mcg/min:: 200
Begin to taper infusion when:: Remained at goal for 2hrs
Taper by mcg/min:: 5 mcg/min
Frequency of taper (minutes) if patient maintains goal:: 30
Taper to off?: Yes
If infusion off & no longer maintaining goal:: Contact Provider
06/11/24 12:43
Admit/Transfer Patient As Directed
Co-Sign Provider:
Level of Care: Inpatient admission
Assign to:: IMU- Intermediate Care
Physician / Group: Juliette
Diagnosis: CHF
Reason for Hospitalization: IV diuretics
Expected length of stay greater than two midnights?: Yes
ELOS- Estimated Length of Stay in days: 3
I certify the patient meets the requirements for IP care: Yes
PRN Pain Medication Management As Directed
May give lesser potent ordered pain med per pt: Yes
preference::
Protocol:: Medication orders for pain may be administered in a
manner that supports deferring to patient preference
when the pt is:
- Requesting an ordered lesser potent pain medication.
Least to most potent pain medications are defined
as: acetaminophen < NSAID < tramadol < opioids
(morphine, oxycodone, hydromorphone).
- Requesting a lesser dose of the same medication IF
ORDERED.
- Requesting a less intrusive route of administration
if both routes are prescribed by the provider (PO <
IV).
06/11/24 12:45
Code Status As Directed
Resuscitation Status: Full Code
06/11/24 14:46
Troponin I Q6H
06/11/24 Dinner
Cholesterol Lowering
At Your Request: Full Participation
Cholesterol Lowering: Sodium, 2 Gram
06/11/24 20:30
Troponin I Q6H
Abnormal Lab Results
06/11/24
10:37
WBC 17.0 H 10^3/uL
(4.8-10.8)
RBC 6.13 H 10^6/uL
(4.70-6.10)
Hct 53.7 H %
(39.0-52.0)
MCHC 32.0 L g/dL
(33.0-37.0)
Abs Immat Gran (auto) 0.1 H 10^3/uL
(0-0.05)
Absolute Neuts (auto) 12.7 H 10^3/uL
(1.4-6.5)
Absolute Monos (auto) 0.8 H 10^3/uL
(0.1-0.6)
Lymphocytes % 15.7 L %
(20.5-51.1)
BUN 25 H mg/dl
(9-20)
Glucose 191 H mg/dl
(70-99)
Troponin I 0.062 H* ng/ml
06/11/24 10:37
06/11/24 10:37
Vital Signs
Initial and Last Documented VS:
Initial Vital Signs
Pulse Pulse Ox
98 91
06/11/24 10:26 06/11/24 10:26
Last Documented Vital Signs
Pulse Resp BP Pulse Ox
80 14 143/83 99
06/11/24 14:00 06/11/24 14:00 06/11/24 14:00 06/11/24 14:00
Amberlt;Lul Palma PA-C - Last Filed: 06/11/24 15:25>
Comment
Comment:
EKG independently interpreted by me shows normal sinus rhythm with occasional PVCs, lateral ST depressions are comparable to prior
*Critical Care Note
Total Time (30-74mins, 75-104mins- exclusive of procedures): 40 minutes
comment:
Critical care time: 40 minutes
Critical care time was exclusive of: Separately billable procedures, treating other patients, and teaching time
Critical care was necessary to treat or prevent imminent or life-threatening deterioration of the following conditions: Acute respiratory failure/CHF
Critical care time spent personally by me on the following activities:
[x] Review of old charts
[x] Obtaining history from patient or surrogate
[x] Ordering and review of the laboratory studies
[x] Ordering and review of radiographic studies
[x] Ordering and performing treatments and interventions
[x] Patient patient's response to treatment
[x] Development of treatment plan with patient or surrogate
ED Attending Note
<Lul Palma PA-C - Last Filed: 06/11/24 15:25>
-
Portions of this chart may have been created with voice recognition software.� Occasional wrong word or��sound alike� substitutions may have occurred due to the inherent limitations of voice recognition software.
<Kye Hinkle MD - Last Filed: 06/11/24 13:06>
ED Attending Note
Patient seen and examined by attending physician: Yes
I performed the substantive portion of visit, reviewed & personally made and approve the management plan that is documented in note by myself or VICENTE.: Yes
ED Attending Note:
68-year-old with severe shortness of breath. Started mildly few weeks ago. Much worse the last few hours. Diaphoretic. No chest pain. No fever.
On exam patient is in moderate respiratory distress. Diaphoretic clammy pale. Tachypnea. Diffuse expiratory wheezing and rales.
Regular rate and rhythm. Abdomen soft elevated BMI. Neuro grossly nonfocal. Remains awake and alert despite the tachypnea. Pulse ox 89% on nonrebreather
Impression is CHF/pulmonary edema with a possible underlying COPD component. Patient was given BiPAP, diuretics, steroids and nebulizers. X-ray shows CHF. Rechecked multiple times. Significant improvement clinically although blood pressure
remains low.
1205... Patient remains doing well clinically. BP up to 104. updated.
CC=35 minutes
Discharge Plan
Departure
Patient Disposition: Admit
Date of Disposition: 06/11/24
Time of Disposition: 11:14
Admit to: IMU
Presentation/result/management discussed w/ accepting MD/DO: Hospitalist
Discharge Problem:
Acute hypoxemic respiratory failure, Acute heart failure with preserved ejection fraction (HFpEF)
Interventions
Interventions:
*Risk Screen - Suicide Last Done: 06/11/24 10:40
*General Assessment Last Done: 06/11/24 10:40
*Neglect/Abuse Screening Last Done: 06/11/24 10:40
*ED COVID-19 Vaccine History Last Done: 06/11/24 10:39
ED- Cardiac Assessment Last Done: 06/11/24 10:56
ED- Pulmonary Assessment Last Done: 06/11/24 10:42
[2024-06-11 10:44] LABS: % Basophils 0.7 % (0-2); % Eosinophils 3.4 % (0-6); % Immature Granulocytes 0.4 % (0-0.5); % Lymphocytes 15.7 % (20.5-51.1); % Monocytes 4.9 % (1.7-9.3); % Neutrophils 74.9 % (42.2-75.2); Absolute Basophils 0.1 10^3/uL (0-0.2); Absolute Eosinophils 0.6 10^3/uL (0-0.7); Absolute Immature Granulocytes 0.1 10^3/uL (0-0.05); Absolute Lymphocytes 2.7 10^3/uL (1.2-3.4); Absolute Monocytes 0.8 10^3/uL (0.1-0.6); Absolute Neutrophils 12.7 10^3/uL (1.4-6.5); Hematocrit 53.7 % (39.0-52.0); Hemoglobin 17.2 g/dL (13.0-18.0); Mean Corpuscular Hgb 28.1 pg (27.0-31.0); Mean Corpuscular Volume 87.6 fL (80.0-94.0); Mean Platelet Volume 9.5 fL (7.4-10.4); Nucleated Red Blood Cells % 0 % (-); Platelet Count 271 10^3/uL (130-400); Red Blood Cell Count 6.13 10^6/uL (4.70-6.10); Red Cell Dist. Width 14.2 % (11.5-14.5)
[2024-06-11] MEDS: LASIX 80 MG IV (10:48)
[2024-06-11 10:58] LABS: Blood Urea Nitrogen 25 mg/dl (9-20); Calcium 9.2 mg/dl (8.4-10.2); Carbon Dioxide 27 mmol/L (22-30); Chloride 104 mmol/L (98-107); Glucose 191 mg/dl (70-99); Potassium 4.4 mmol/L (3.5-5.1); Sodium 143 mmol/L (135-145); eGFR > 60.00
[2024-06-11 11:12] LABS: NT-proBNP 1960 pg/ml; Troponin I 0.062 ng/ml
--- NOTE | 2024-06-11 12:12 | HPS.HSE ---
Family Physician
-
Family Physician: * NONE
Chief Complaint
-
Shortness of Breath
History of Present Illness
Patient is a 68 y/o male past medical history of ASCVD, CHF, Hyperaldosteronism, and Hyperlipidemia who presents with increased shortness of breath. Patient notes some shortness of breath, particularly dyspnea on exertion over the past month. Today
he developed acute worsening of his symptoms prompting him to call EMS. When EMS arrived he was significantly hypoxia with pulse ox around 60%. He arrived to the ED on non-rebreather mask still pulse ox in the 80s and he was placed on BiPAP. He
reports dry cough. Patient reports lower extremity edema and weight is stable. He notes he frequently skips his diuretic. He denies fevers.
Medical History
Past Medical History
Past Medical History: Reports Other
Additional Past Medical History:
CVA
Right Carotid Artery Stenosis s/p Right CEA
Coronary Artery Disease s/p Right RCA stent in 2018
Chronic HFpEF
Hyperaldosteronism
Hyperlipidemia
COPD
GI Bleed
Past Surgical History: Reports Other
Additional Past Surgical History:
Right Carotid Endarterectomy - 2023
Left Lower Extremity Stents
Right Total Hip Replacement
Left Knee Surgery
Laminectomy
Inguinal and Umbilical Hernia Repair
Appendectomy
Malignant Melanoma Removal
Social History
Tobacco: Smoker (Notes was smoking an occasional cigars, but now has gone back to cigarettes)
Alcohol: Occasional
Personal:
Living: With Family
Family History
Family History: Not pertinent
Allergies / Home Medications
Allergies reflects when Allergies were last updated in [facility].
Home Medications with original date entered in [facility]
Allergy/Medication List:
Allergies
Allergy/AdvReac Type Severity Reaction Status Date / Time
bee venom protein (honey bee) Allergy Swelling Verified 02/12/24 09:19
spironolactone Allergy Unknown Verified 02/12/24 09:19
Sulfa (Sulfonamide Allergy severe rash Verified 02/12/24 09:19
Antibiotics)
Home Medications
aspirin 81 mg tablet,delayed release 81 mg PO DAILY Blood Clot Prevention/Tx 05/04/10
rosuvastatin 40 mg tablet (Crestor) 40 mg PO QPM High Cholesterol 08/20/13
clopidogrel 75 mg tablet 75 mg PO DAILY #30 tabs 11/16/17
minoxidil 2.5 mg tablet 2.5 mg PO BID Heart Disease/Condition 12/13/17
carvedilol 12.5 mg tablet (Coreg) 12.5 mg PO BID Heart Disease/Condition 10/19/22
dapagliflozin propanediol 10 mg tablet (Farxiga) 10 mg PO DAILY Heart Disease/Condition 01/31/24
eplerenone 25 mg tablet 25 mg PO DAILY Heart Disease/Condition 01/31/24
fluticasone fur. 100 mcg-umeclid 62.5 mcg-vilant 25 mcg inhalat.powder (Trelegy Ellipta) 1 inh inhalation DAILY PRN ALLERGIES/SOB 01/31/24
torsemide 20 mg tablet 20 mg PO DAILY Fluid Retention/Swelling 02/07/24
albuterol sulfate 90 mcg/actuation aerosol inhaler 2 puff inhalation R Q6HPRN PRN sob 06/11/24
Review of Systems
-
A 12 point ROS was completed and negative except as noted: Yes
Constitutional: Denies Fever or Chills
Respiratory: Reports Cough and Trouble Breathing
Cardiac: Denies Chest Pain or Palpitations
Physical Exam
Vital Signs
Vital Signs
Pulse Resp BP Pulse Ox
61 17 104/67 98
06/11/24 11:50 06/11/24 11:50 06/11/24 11:50 06/11/24 11:50
Physical Exam
General: Comfortable and Conversant
HEENT: Anicteric, Moist mucous membranes and Oxygen (BiPAP)
Respiratory: Wheezes (Few scattered) and Rales (Bilateral Bases)
Cardiac: S1/S2 and Regular Rhythm; No Murmur
GI: Soft and Non Tender
Rectal: Deferred by Provider
Musculoskeletal: No Clubbing, No Cyanosis and Other (+2 pitting edema bilaterally)
Skin: Warm and Dry
Neuro: Awake, Alert, Oriented and Nonfocal/grossly intact
Psych: Calm
Laboratory Results
-
06/11/24 10:37
06/11/24 10:37
Laboratory Results
Troponin I 0.062 ng/ml H* 06/11/24 10:37
Chest X-Ray:
[id number] pulmonary edema without pleural effusion.
Data Reviewed
-
Diagnostic Radiology: Report Reviewed by me
Lab Data: Labs Reviewed by me
Impression/Plan
-
Acute Hypoxic Respiratory Failure secondary to Acute Heart Failure
-Continue supplemental oxygen via BiPAP
Acute on Chronic HFpEF
-Consult Cardiology
-Echo 06/06/2024: Moderate concentric left ventricular hypertrophy. Hypokinesis of the inferior wall. LV ejection fraction 50-55%
-Continue Lasix 40mg IV BID
-Continue Farxiga
-Monitor Is&Os and Daily Weights
ASCVD (CAD s/p R RCA stent, Right CEA, Prior Midbrain CVA)
-Continue aspirin and Plavix
Hyperaldosteronism
-Continue eplerenone
Hypertension
-Continue Coreg and Minoxidil
Hyperlipidemia
-Continue Crestor
COPD, no acute exacerbation
-Continue Pulmicort and DuoNeb in place of Trelegy
DVT proph: Lovenox
Code Status: Full Code
--- NOTE | 2024-06-11 13:09 | W.PN.UPDATE ---
Update Note
Progress Note Update
This is an addendum to the H&P written by Shara Aguirre on 06/11/2024.� Patient seen and examined independently with PA.
68-year-old male past medical history of carotid stenosis status post right carotid endarterectomy, cardiac arrest, CAD, ischemic cardiomyopathy, rectal bleeding, obstructive sleep apnea, COPD, hypertension, hyperaldosteronism, herniated disc, CVA,
metabolic syndrome X, CKD 2, hyperlipidemia, multi melanoma, depression, here with shortness of breath/dry cough.
Patient initially hypotensive with systolic blood pressure of 238. Crackles bilaterally.� Saturating 89% on nonrebreather.�Cardiac BNP of 2000 from 1200.� Chest x-ray shows mild to moderate pulmonary edema.� Presentation consistent with acute on
chronic HFrEF exacerbation secondary to torsemide noncompliance with hypertensive emergency.� Patient on BiPAP, 80 IV Lasix and nitroglycerin started with significant drop in blood pressure to 90 systolic.� Nitroglycerin drip since turned off.
40 IV Lasix twice daily.� DuoNeb's PRN.�Cardiology consulted.
--- NOTE | 2024-06-11 13:37 | CON.CAR ---
Addendum entered and electronically signed by Cooper Bird DO 06/11/24 20:39:
I saw and examined the patient.
The Food Runner's note was reviewed and I agree with the note.
Comment:
Plan:
He stopped his diuretics and now presents with significant weight gain and chest xray consistent with HF
Cont IV lasix diuresis 40 mg BID.
BiPAP in ER
He does not check daily wts, follow HF diet.
Monitor Is and Os, daily wts and cr.
Recent echo Jun 06 2024: EF 50-55%, no need to repeat presently.
Continue Coreg, farxiga.
Trend troponin and continue medical therapy of nonMI troponin.
No chest pain or acute ischemic changes on EKG. He is currently scheduled for OP PET/CT stress test 06/19.
Continue aspirin, plavix, crestor.
Discussed with his family at bedside
Original Note:
Consultation
Consultation Request
Date/Time Consultation Requested: 06/11/2024 at 1300
Date/Time Consultation Performed: 06/11/2024 at 1345
Requesting Provider: Dr. Segovia
Performing Provider: Nella Chau PA-C for Dr. Bird
Reason for Consultation: CHF
Medical History
-
History of Present Illness:
HPI: James is a 68 year old male with PMH of CAD, s/p PCI of RCA and OM3, ischemic cardiomyopathy, prior cardiac arrest, chronic HFpEF, HTN, HLD, COPD, CKD, RODERICK, and carotid artery disease s/p CEA. He presented to [facility] for evaluation of sudden
worsening SOB. He was seen in the office 05/25/2024 and noted symptoms and he was arranged for echo and stress test. He admits now that he has not been taking his torsemide as much as he is supposed to. He is prescribed torsemide 20mg daily, however
he states he takes 1/2 tablet maybe 3 times per week. He feels as though it was making him urinate too much which is why he cut it back. He also admits to dietary indiscretion with increased sodium intake. This AM he woke up and took a 1/2 tablet of
his torsemide and went to his storage unit. When he got to his storage unit, he tried to lift up the door to his unit and became extremely SOB and lightheaded. He called 911 and reportedly when EMS arrived, his pulse ox was in the 60s and he was
pale and clammy. In ER, placed on BiPAP and improving. ProBNP elevated at 1960 and chest xray shows mild-moderate pulmonary edema. He was given a dose of IV lasix in ER and has noted good diuresis. Denies chest pain. Breathing improved while on
BiPAP. He does not weigh himself daily, and weight typically around 265lbs. Weight in ER 282lbs. Cardiology consulted for evaluation given acute heart failure.
PMH:
h/o cardiac arrest (VF) 10/30/17, in-hospital with 45 minutes of resuscitation
CAD
Inferior wall AR s/p prox RCA PCI 10/30/17
s/p mid circ to OM3 stent 12/13/17
Ischemic CM EF 40% by v-gram 10/20/17, improved to 50-55% by echo 06/06/2024
Chronic HFpEF
HTN
Dyslipidemia
Tobacco use/COPD
h/o rash w/ HCTZ, lasix
h/o Epistaxis in the setting of HTN 10/30/17
h/o hemorrhoidal bleeding
CKD, with hx ARF - improved
Depression
Obesity
RODERICK, untreated
Carotid artery disease, s/p R CEA 02/07/2024
TIA 2009
Past Medical History
Past Medical History: Other (See HPI)
Past Surgical History: Appendectomy, Cardiac (RCA stent 10/2017, LCX stent for 2017) and Other (Polypectomy, laminectomy, left knee surgery, melanoma resection left lower extremity, right hip replacement, umbilical hernia repair, bilateral inguinal
hernia repair)
Social History
Tobacco: Smoker (smoke 1/2 pack daily)
Alcohol: Occasional
Personal:
Living: With Family
Family History
Family History: Cancer and Other (Father of prostate cancer had CAD: Mother diabetes, Parkinson's, hypertension)
Allergies / Home Medications
Allergy/AdvReac Type Severity Reaction Status Date / Time
bee venom protein (honey bee) Allergy Swelling Verified 02/12/24 09:19
spironolactone Allergy Unknown Verified 02/12/24 09:19
Sulfa (Sulfonamide Allergy severe rash Verified 02/12/24 09:19
Antibiotics)
�Medication �Instructions �Recorded �Confirmed �Type
aspirin 81 mg tablet,delayed 81 mg PO DAILY Blood Clot 05/04/10 06/11/24 History
release Prevention/Tx
rosuvastatin 40 mg tablet (Crestor) 40 mg PO QPM High Cholesterol 08/20/13 06/11/24 History
clopidogrel 75 mg tablet 75 mg PO DAILY #30 tabs 11/16/17 06/11/24 Rx
minoxidil 2.5 mg tablet 2.5 mg PO BID Heart 12/13/17 06/11/24 History
Disease/Condition
carvedilol 12.5 mg tablet (Coreg) 12.5 mg PO BID Heart 10/19/22 06/11/24 History
Disease/Condition
dapagliflozin propanediol 10 mg 10 mg PO DAILY Heart 01/31/24 06/11/24 History
tablet (Farxiga) Disease/Condition
eplerenone 25 mg tablet 25 mg PO DAILY Heart 01/31/24 06/11/24 History
Disease/Condition
fluticasone fur. 100 mcg-umeclid 1 inh inhalation DAILY PRN 01/31/24 06/11/24 History
62.5 mcg-vilant 25 mcg ALLERGIES/SOB
inhalat.powder (Trelegy Ellipta)
torsemide 20 mg tablet 20 mg PO DAILY Fluid 02/07/24 06/11/24 History
Retention/Swelling
albuterol sulfate 90 mcg/actuation 2 puff inhalation R Q6HPRN PRN sob 06/11/24 06/11/24 History
aerosol inhaler
Review of Systems
-
History Source: Patient
All other systems: Negative unless noted
Physical Exam
Vital Signs
Pulse Resp BP Pulse Ox
61 17 104/67 98
06/11/24 11:50 06/11/24 11:50 06/11/24 11:50 06/11/24 11:50
Lab Results
06/11/24 10:37
06/11/24 10:37
Troponin I 0.062 ng/ml H* 06/11/24 10:37
Uee-H-Bbohdytnmfl Pept 1960 pg/ml 06/11/24 10:37
Physical Exam
General: Well Developed, Well Nourished and No Apparent Distress
HEENT: Normocephalic, Anicteric and Moist Mucous Membranes
Respiratory: Wheezes, Crackles and Non Labored Respirations
Cardiac: S1/S2 and Regular Rhythm
Musculoskeletal: No Clubbing, No Cyanosis and Edema
Skin: Warm and Dry
Neuro: AO x 3 and Nonfocal/Grossly Intact
Psych: Calm
Impression / Plan
-
PCP: Janine Nolan
Toolmaker Helper: Dr. Bautista
Impression:
Presented with SOB
Acute hypoxic respiratory failure, on BiPAP
Acute on chronic HFpEF
Elevated troponin, suspect nonischemic myocardial injury.
h/o cardiac arrest (VF) 10/30/17, in-hospital with 45 minutes of resuscitation
CAD
Inferior wall AR s/p prox RCA PCI 10/30/17
s/p mid circ to OM3 stent 12/13/17
Ischemic CM EF 40% by v-gram 10/20/17, improved to 50-55% by echo 06/06/2024
HTN
Dyslipidemia
Tobacco use/COPD
h/o rash w/ HCTZ, lasix
h/o Epistaxis in the setting of HTN 10/30/17
h/o hemorrhoidal bleeding
CKD, with hx ARF - improved
Depression
Obesity
RODERICK, untreated
Carotid artery disease, s/p R CEA 02/07/2024
TIA 2009
Lexiscan nuclear stress test 08/26/2021: small area of mildly decreased counts in the inferior and inferolateral wall.� At rest, the defect was fixed with no evidence of ischemia.� EF 41% with inferior HK
Echo 09/16/2021: EF 45 to 50%, Akinetic base to mid inferolateral and base to mid inferior jennings. Mild�left�ventricular hypertrophy. �No significant valvular disease.
Echocardiogram 10/19/2022: Mildly reduced LV systolic function with basal inferolateral hypokinesis and EF 50%. Normal RV size and systolic function.
Echo 06/06/2024: EF 50 to 55%, mild concentric LVH, mild biatrial enlargement, no significant valvular disease
Plan:
-Presented with 1 to 2 months of SOB that acutely worsened this AM. Required BiPAP on arrival to ER.
-Found to be in acute heart failure. proBNP 1919. Chest x-ray with mild to moderate pulmonary edema.
-Continue diuresis with IV Lasix 40 mg twice daily. He does have history of rash with HCTZ and possibly Lasix. Follow closely.
-He admitted to noncompliance with his outpatient torsemide as well as dietary indiscretion. CHF education
-Weight typically around 265lbs per patient report. Weight in ER 282lbs. Follow daily weights, I&Os.
-Creat 1.2, follow w/ diuresis.
-Recent echo 06/06/2024 with EF 50 to 55%. No need to repeat at this time.
-Continue coreg, farxiga.
-Elevated troponin noted, 0.062. Continue to trend to peak. Suspect nonischemic myocardial injury in the setting of acute heart failure.
-No chest pain. EKG SR with PVC, no acute ischemic changes. He is currently scheduled for OP PET/CT stress test 06/19. Continue aspirin, plavix, crestor.
-BP stable, however was significantly elevated on arrival. Most recent BP recorded 102/67. Continue OP medications.
-On BiPAP, wean as able.
HPI: James is a 68 year old male with PMH of CAD, s/p PCI of RCA and OM3, ischemic cardiomyopathy, prior cardiac arrest, chronic HFpEF, HTN, HLD, COPD, CKD, RODERICK, and carotid artery disease s/p CEA. He presented to [facility] for evaluation of sudden
worsening SOB. He was seen in the office 05/25/2024 and noted symptoms and he was arranged for echo and stress test. He admits now that he has not been taking his torsemide as much as he is supposed to. He is prescribed torsemide 20mg daily, however
he states he takes 1/2 tablet maybe 3 times per week. He feels as though it was making him urinate too much which is why he cut it back. He also admits to dietary indiscretion with increased sodium intake. This AM he woke up and took a 1/2 tablet of
his torsemide and went to his storage unit. When he got to his storage unit, he tried to lift up the door to his unit and became extremely SOB and lightheaded. He called 911 and reportedly when EMS arrived, his pulse ox was in the 60s and he was
pale and clammy. In ER, placed on BiPAP and improving. ProBNP elevated at 1960 and chest xray shows mild-moderate pulmonary edema. He was given a dose of IV lasix in ER and has noted good diuresis. Denies chest pain. Breathing improved while on
BiPAP. He does not weigh himself daily, and weight typically around 265lbs. Weight in ER 282lbs. Cardiology consulted for evaluation given acute heart failure.
Data Reviewed
-
EKG: Tracing Personally Visualized and interpreted
Radiology: Report Reviewed by me
[2024-06-11 15:47] LABS: Troponin I 0.127 ng/ml
[2024-06-11] MEDS: DUONEB INH (16:57)
[2024-06-11] MEDS: LASIX 40 MG IV (18:05)
[2024-06-11] MEDS: LOVENOX SC (18:05)
[2024-06-11] MEDS: CRESTOR 40 MG PO (18:40)
[2024-06-11] MEDS: DUONEB 3 ML INH (20:21)
[2024-06-11] MEDS: PULMICORT 0.5 MG INH (20:21)
[2024-06-11 21:13] LABS: Troponin I 0.204 ng/ml
[2024-06-11] MEDS: LONITEN 2.5 MG PO (21:47)
[2024-06-11] MEDS: COREG 12.5 MG PO (21:47)
[2024-06-12] VITALS (14 sets, daily range): BP systolic 117–163; BP diastolic 63–94; BMI 36.3
[2024-06-12 05:35] LABS: Hematocrit 43.5 % (39.0-52.0); Hemoglobin 14.3 g/dL (13.0-18.0); Mean Corp Hgb Conc. 32.9 g/dL (33.0-37.0); Mean Corpuscular Hgb 29.2 pg (27.0-31.0); Mean Platelet Volume 9.3 fL (7.4-10.4); Platelet Count 148 10^3/uL (130-400); Red Blood Cell Count 4.89 10^6/uL (4.70-6.10); White Blood Cell Count 6.1 10^3/uL (4.8-10.8)
[2024-06-12 05:57] LABS: Blood Urea Nitrogen 26 mg/dl (9-20); Calcium 8.8 mg/dl (8.4-10.2); Carbon Dioxide 31 mmol/L (22-30); Chloride 102 mmol/L (98-107); Estimated Creatinine Clearance 98 ml/min; Glucose 95 mg/dl (70-99); HDL Cholesterol 67 mg/dl; LDL Cholesterol, Calculated 69 mg/dl; Magnesium 2.1 mg/dl (1.6-2.3); Potassium 4.1 mmol/L (3.5-5.1); Sodium 141 mmol/L (135-145); Total Cholesterol 160 mg/dl (50-199); Triglyceride 124 mg/dl (10-149); Very Low Density Lipoprotein 24 mg/dl (0-30); eGFR > 60.00
--- NOTE | 2024-06-12 06:08 | PTCARENOTE ---
Received patient from the ED on 3 liters 02. Refuses BIPAP.
[2024-06-12 06:23] LABS: TSH Reflex To Free T4 0.52 uIU/ml (0.47-4.68)
[2024-06-12] MEDS: PULMICORT 0.5 MG INH ×2 (08:11→19:41)
[2024-06-12] MEDS: DUONEB 3 ML INH ×4 (08:12→19:41)
[2024-06-12] MEDS: FARXIGA 10 MG PO (08:18)
[2024-06-12] MEDS: COREG 12.5 MG PO ×2 (08:18→19:52)
[2024-06-12] MEDS: INSPRA 25 MG PO (08:18)
[2024-06-12] MEDS: PLAVIX 75 MG PO (08:18)
[2024-06-12] MEDS: LASIX 40 MG IV ×2 (08:19→17:07)
[2024-06-12] MEDS: ASPIR LOW (ENTERIC COATED) 81 MG PO (08:19)
[2024-06-12] MEDS: LONITEN 2.5 MG PO ×2 (08:20→19:51)
--- NOTE | 2024-06-12 09:39 | W.PN.HOSP.TC ---
Today's Communication/Plan
-
IV Lasix.
Assessment / Plan
Assessment / Plan
Physical exam:
General: Well Developed, Well Nourished and No Apparent Distress
HEENT: Normocephalic, Atraumatic and Moist Mucous Membranes
Respiratory: Clear to Auscultation; Negative Wheezes, Rales or Rhonchi
Cardiac: Regular Rhythm and S1/S2
GI: Soft, Nontender and Nondistended
Musculoskeletal: No Clubbing, No Cyanosis. Bilateral lower extremity Edema
Neuro: Awake, Alert and Oriented
Psych: Calm
A/P:
Acute Hypoxic Respiratory Failure secondary to Acute Heart Failure
-Continue supplemental oxygen via BiPAP
Acute on Chronic HFpEF
-Consult Cardiology
-Echo 06/06/2024: Moderate concentric left ventricular hypertrophy. Hypokinesis of the inferior wall. LV ejection fraction 50-55%
-Continue Lasix 40mg IV BID
-Continue Farxiga
-Monitor Is&Os and Daily Weights
-When I saw him cardiology has seen him but he does not recall recommendations from cardiology. I sat down and discussed with him at length but I am not sure how much he is understanding about heart failure education.
ASCVD (CAD s/p R RCA stent, Right CEA, Prior Midbrain CVA)
-Continue aspirin and Plavix
Hyperaldosteronism
-Continue eplerenone
Hypertension
-Continue Coreg and Minoxidil
Hyperlipidemia
-Continue Crestor
COPD, no acute exacerbation
-Continue Pulmicort and DuoNeb in place of Trelegy
DVT proph: Lovenox
Code Status: Full Code
Total time spent on today's encounter was 52 minutes which included time spent in counseling the patient/family regarding diagnosis and treatment plan as listed above, goals of care, and symptom management. Case was discussed with nursing staff,
specialists, and care coordinators/case management. All labs and imaging personally reviewed by me. Remainder the time spent in detailed review of previous records, lab data, imaging, and other medical provider documentation.
Anticipated Discharge: > 48 hours
Subjective/Interval History
-
Date of Service: June 12, 2024
Patient still with some shortness of breath and peripheral edema.
Objective Data
-
Labs:
Laboratory Results
06/12/24
05:02
WBC 6.1
Hgb 14.3
Hct 43.5
Plt Count 148 D
Sodium 141
Potassium 4.1
Chloride 102
Carbon Dioxide 31 H
BUN 26 H
Creatinine 1.0
Glucose 95
Calcium 8.8
Vital Signs:
Vital Signs
Temp Pulse Resp BP Pulse Ox
97.5 F 62 16 131/63 98
06/12/24 07:07 06/12/24 08:20 06/12/24 08:19 06/12/24 08:20 06/12/24 08:19
I&O
06/11/24 06/12/24 06/13/24
06:59 06:59 06:59
Output Total 1974
Balance -1974 -1974
--- NOTE | 2024-06-12 10:29 | PTCARENOTE ---
Assumed care of patient this morning. He is aaox3, pleasant. He was sitting up on side of the bed and had already finished breakfast. He has no complaints. He is sinus ritika on the monitor, otherwise vitals are stable. I spoke with patient's
and updated her to RN ability. Assessment, care and VS as charted.
--- NOTE | 2024-06-12 10:31 | CM ---
Alert awake oriented patient who lives with his Colette who lives in a 2 story home with 0 step to enter and 13 steps to bed and bathroom. He is independent in driving and in all activities of daily living.He was offered VN he declined need.He is
on oxygen 2 liter Pox 93%.Lives in [facility] 1.1 hrs away.No adaptive devices.
No VN hx / No SNF history
Pharmacy [facility]
PCP DR Nolan
PLAN Home Declined VN .Watch for oxygen needs
--- NOTE | 2024-06-12 12:16 | W.PN.CARDCBS ---
Today's Communication / Plan
-
Cont IV lasix diuresis 40 mg BID. Over 3L negative and wt down 6 lbs
Discussed HF teaching as he does not check daily wts, follow HF diet.
Cont to monitor Is and Os, daily wts and cr.
Recent echo Jun 06 2024: EF 50-55%, no need to repeat presently.
Trend troponin until peaks and continue medical therapy of nonMI troponin.
Pt is scheduled for OP PET/CT stress test 06/19.
Impression / Plan
-
.
PCP: Janine Nolan
Sound Recording Technician: Dr. Bautista
Impression:
Presented with SOB
Acute hypoxic respiratory failure, on BiPAP
Acute on chronic HFpEF
Elevated troponin, suspect nonischemic myocardial injury.
h/o cardiac arrest (VF) 10/30/17, in-hospital with 45 minutes of resuscitation
CAD
Inferior wall [place] s/p prox RCA PCI 10/30/17
s/p mid circ to OM3 stent 12/13/17
Ischemic CM EF 40% by v-gram 10/20/17, improved to 50-55% by echo 06/06/2024
HTN
Dyslipidemia
Tobacco use/COPD
h/o rash w/ HCTZ, lasix
h/o Epistaxis in the setting of HTN 10/30/17
h/o hemorrhoidal bleeding
CKD, with hx ARF - improved
Depression
Obesity
RODERICK, untreated
Carotid artery disease, s/p R CEA 02/07/2024
TIA 2009
Lexiscan nuclear stress test 08/26/2021: small area of mildly decreased counts in the inferior and inferolateral wall.� At rest, the defect was fixed with no evidence of ischemia.� EF 41% with inferior HK
Echo 09/16/2021: EF 45 to 50%, Akinetic base to mid inferolateral and base to mid inferior jennings. Mild�left�ventricular hypertrophy. �No significant valvular disease.
Echocardiogram 10/19/2022: Mildly reduced LV systolic function with basal inferolateral hypokinesis and EF 50%. Normal RV size and systolic function.
Echo 06/06/2024: EF 50 to 55%, mild concentric LVH, mild biatrial enlargement, no significant valvular disease
Plan:
He stopped his diuretics and now presents with significant weight gain and chest xray consistent with HF
Cont IV lasix diuresis 40 mg BID. Over 3L negative and wt down 6 lbs
Discussed HF teaching as he does not check daily wts, follow HF diet.
Cont to monitor Is and Os, daily wts and cr.
Recent echo Jun 06 2024: EF 50-55%, no need to repeat presently.
Continue Coreg, farxiga.
Trend troponin until peaks and continue medical therapy of nonMI troponin.
Pt is scheduled for OP PET/CT stress test 06/19.
Continue aspirin, plavix, crestor.
Discussed with his via phone
HPI: James is a 68 year old male with PMH of CAD, s/p PCI of RCA and OM3, ischemic cardiomyopathy, prior cardiac arrest, chronic HFpEF, HTN, HLD, COPD, CKD, RODERICK, and carotid artery disease s/p CEA. He presented to [facility] for evaluation of sudden
worsening SOB. He was seen in the office 05/25/2024 and noted symptoms and he was arranged for echo and stress test. He admits now that he has not been taking his torsemide as much as he is supposed to. He is prescribed torsemide 20mg daily, however
he states he takes 1/2 tablet maybe 3 times per week. He feels as though it was making him urinate too much which is why he cut it back. He also admits to dietary indiscretion with increased sodium intake. This AM he woke up and took a 1/2 tablet of
his torsemide and went to his storage unit. When he got to his storage unit, he tried to lift up the door to his unit and became extremely SOB and lightheaded. He called 911 and reportedly when EMS arrived, his pulse ox was in the 60s and he was
pale and clammy. In ER, placed on BiPAP and improving. ProBNP elevated at 1960 and chest xray shows mild-moderate pulmonary edema. He was given a dose of IV lasix in ER and has noted good diuresis. Denies chest pain. Breathing improved while on
BiPAP. He does not weigh himself daily, and weight typically around 265lbs. Weight in ER 282lbs. Cardiology consulted for evaluation given acute heart failure.
Progress Note - Sound Recording Technician
Subjective
Date of Service: June 12, 2024
Pt seen and examined. No complaints. No chest pain or shortness of breath.
Objective
Labs:
06/12/24 05:02
06/12/24 05:02
Labs
Hgb 14.3 g/dL (13.0-18.0) 06/12/24 05:02
Hct 43.5 % (39.0-52.0) 06/12/24 05:02
Plt Count 148 10^3/uL (130-400) D 06/12/24 05:02
Sodium 141 mmol/L (135-145) 06/12/24 05:02
Potassium 4.1 mmol/L (3.5-5.1) 06/12/24 05:02
BUN 26 mg/dl (9-20) H 06/12/24 05:02
Creatinine 1.0 mg/dL (0.7-1.3) 06/12/24 05:02
Glucose 95 mg/dl (70-99) 06/12/24 05:02
Troponins
06/11/24 06/11/24 06/11/24
10:37 14:46 20:39
Troponin I 0.062 H* 0.127 H* D 0.204 H* D
Vital Signs and I&O:
Vital Signs
Temp Pulse Resp BP Pulse Ox
98.1 F 56 16 128/71 94
06/12/24 11:56 06/12/24 11:43 06/12/24 11:43 06/12/24 10:00 06/12/24 11:43
Vital Signs
Temp Pulse Resp BP Pulse Ox
98.1 F 56 16 128/71 94
06/12/24 11:56 06/12/24 11:43 06/12/24 11:43 06/12/24 10:00 06/12/24 11:43
Intake & Output
06/10/24 06/11/24 06/12/24 06/13/24
06:59 06:59 06:59 06:59
Output Total 1974 1100 / 1100
Balance -1974 -1099 / -1100
Physical Exam
Physical Exam
General: No acute distress, AAOX3
Neck: Negative JVD
Heart: Regular, Negative S3 positive S1/S2, Negative S4, No murmur
Lungs: CTA b/l, negative wheezes/rales/rhonchi
Abd: Positive BS, NT/ND, neg rebound/rigidity/guarding
Ext: Negative cyanosis/clubbing. +1 b/l edema
Neuro: nonfocal
[2024-06-12] MEDS: CRESTOR 40 MG PO (17:07)
[2024-06-12] MEDS: LOVENOX SC (17:08)
--- NOTE | 2024-06-12 21:31 | PTCARENOTE ---
Received patient from previous RN. Patient is Aox3 and sinus ritika on the monitor. Patient is on 2L O2 and has crackles at the left base of lungs. Patient uses the urinal and rings call barrett appropriately. Patient is resting in bed and care is
ongoing.
[2024-06-13] VITALS (11 sets, daily range): BP systolic 124–155; BP diastolic 64–86; BMI 36.2
[2024-06-13 05:15] LABS: Blood Urea Nitrogen 29 mg/dl (9-20); Calcium 9.2 mg/dl (8.4-10.2); Carbon Dioxide 33 mmol/L (22-30); Chloride 99 mmol/L (98-107); Estimated Creatinine Clearance 89 ml/min; Glucose 93 mg/dl (70-99); Potassium 3.5 mmol/L (3.5-5.1); Sodium 140 mmol/L (135-145); eGFR > 60.00
[2024-06-13] MEDS: PULMICORT 0.5 MG INH ×2 (07:54→19:25)
[2024-06-13] MEDS: DUONEB 3 ML INH ×4 (07:54→19:25)
--- NOTE | 2024-06-13 08:10 | W.PN.CARDCBS ---
Today's Communication / Plan
-
Cont IV diuresis
HF teaching
med tx of nonMI trop
Wean O2 and ambulate as able
Outpt PET stress test next week
Discussed compliance.
Impression / Plan
-
.
PCP: Janine Nolan
Loan Operations Manager: Dr. Bautista
Impression:
Presented with SOB
Acute hypoxic respiratory failure, on BiPAP
Acute on chronic HFpEF
NonMI trop, peak 0.2, nonischemic myocardial injury.
Significant noncompliance with diet and meds
Hx cardiac arrest (VF) 10/30/17, in-hospital with 45 minutes of resuscitation
Hx CAD
Inferior wall [place] s/p prox RCA PCI 10/30/17
s/p mid circ to OM3 stent 12/13/17
Hx Recovered Ischemic CM EF 40% by v-gram 10/20/17, improved to 50-55% by echo 06/06/2024
Carotid artery disease, s/p R CEA 02/07/2024
-TIA 2009
Acute on chronic RF, improved
HTN
Dyslipidemia
Tobacco use/COPD
Hx rash w/ HCTZ, possibly lasix but has been tolerating
Depression
Morbid Obesity
RODERICK, untreated
Lexiscan nuclear stress test 08/26/2021: small area of mildly decreased counts in the inferior and inferolateral wall.� At rest, the defect was fixed with no evidence of ischemia.� EF 41% with inferior HK
Echo 09/16/2021: EF 45 to 50%, Akinetic base to mid inferolateral and base to mid inferior jennings. Mild�left�ventricular hypertrophy. �No significant valvular disease.
Echocardiogram 10/19/2022: Mildly reduced LV systolic function with basal inferolateral hypokinesis and EF 50%. Normal RV size and systolic function.
Echo 06/06/2024: EF 50 to 55%, mild concentric LVH, mild biatrial enlargement, no significant valvular disease
Plan:
--He stopped his diuretics and presented with significant weight gain and chest xray consistent with HF
Cont IV lasix diuresis 40 mg BID. Over 5L negative last 48 hrs and wt down 7 lbs
-We have thoroughly discussed HF teaching as he does not check daily wts, follow HF diet.
-Cont to monitor Is and Os, daily wts and cr.
-Wean O2 and ambulate as able.
Recent echo Jun 06 2024: EF 50-55%, no need to repeat presently.
Continue Coreg, farxiga.
Troponin peaked 0.2. Continue medical therapy of nonMI troponin.
-Pt is scheduled for OP PET/CT stress test 06/19/2024. Will keep this scheduled.
Continue aspirin, plavix, crestor.
Discussed with his via phone last 24 hrs.
Discussed with primary service.
HPI: James is a 68 year old male with PMH of CAD, s/p PCI of RCA and OM3, ischemic cardiomyopathy, prior cardiac arrest, chronic HFpEF, HTN, HLD, COPD, CKD, RODERICK, and carotid artery disease s/p CEA. He presented to [facility] for evaluation of sudden
worsening SOB. He was seen in the office 05/25/2024 and noted symptoms and he was arranged for echo and stress test. He admits now that he has not been taking his torsemide as much as he is supposed to. He is prescribed torsemide 20mg daily, however
he states he takes 1/2 tablet maybe 3 times per week. He feels as though it was making him urinate too much which is why he cut it back. He also admits to dietary indiscretion with increased sodium intake. This AM he woke up and took a 1/2 tablet of
his torsemide and went to his storage unit. When he got to his storage unit, he tried to lift up the door to his unit and became extremely SOB and lightheaded. He called 911 and reportedly when EMS arrived, his pulse ox was in the 60s and he was
pale and clammy. In ER, placed on BiPAP and improving. ProBNP elevated at 1960 and chest xray shows mild-moderate pulmonary edema. He was given a dose of IV lasix in ER and has noted good diuresis. Denies chest pain. Breathing improved while on
BiPAP. He does not weigh himself daily, and weight typically around 265lbs. Weight in ER 282lbs. Cardiology consulted for evaluation given acute heart failure.
Progress Note - Loan Operations Manager
Subjective
Date of Service: June 13, 2024
Pt seen and examined. Breathing better. No chest pain or shortness of breath.
Objective
Labs:
06/12/24 05:02
06/13/24 04:29
Labs
Hgb 14.3 g/dL (13.0-18.0) 06/12/24 05:02
Hct 43.5 % (39.0-52.0) 06/12/24 05:02
Plt Count 148 10^3/uL (130-400) D 06/12/24 05:02
Sodium 140 mmol/L (135-145) 06/13/24 04:29
Potassium 3.5 mmol/L (3.5-5.1) 06/13/24 04:29
BUN 29 mg/dl (9-20) H 06/13/24 04:29
Creatinine 1.1 mg/dL (0.7-1.3) 06/13/24 04:29
Glucose 93 mg/dl (70-99) 06/13/24 04:29
Troponins
06/11/24 06/11/24 06/11/24
10:37 14:46 20:39
Troponin I 0.062 H* 0.127 H* D 0.204 H* D
06/13/24
04:29
Troponin I 0.070 H*
Vital Signs and I&O:
Vital Signs
Temp Pulse Resp BP Pulse Ox
97.9 F 56 17 142/84 97
06/13/24 04:47 06/13/24 08:02 06/13/24 08:02 06/13/24 04:00 06/13/24 08:02
Vital Signs
Temp Pulse Resp BP Pulse Ox
97.9 F 56 17 142/84 97
06/13/24 04:47 06/13/24 08:02 06/13/24 08:02 06/13/24 04:00 06/13/24 08:02
Intake & Output
06/11/24 06/12/24 06/13/24 06/14/24
06:59 06:59 06:59 06:59
Intake Total 1440 / 1440
Output Total 1974 3525 / 3525
Balance -1974 -1974 -2084 /
Physical Exam
Physical Exam
General: No acute distress, AAOX3
Neck: Negative JVD
Heart: Regular, Negative S3 positive S1/S2, Negative S4, No murmur
Lungs: CTA b/l, negative wheezes/rales/rhonchi
Abd: Morbid obesity. Positive BS, NT/ND, neg rebound/rigidity/guarding
Ext: Negative cyanosis/clubbing. +1 b/l edema
Neuro: nonfocal
[2024-06-13] MEDS: ASPIR LOW (ENTERIC COATED) 81 MG PO (08:41)
[2024-06-13] MEDS: COREG 12.5 MG PO ×2 (08:41→19:44)
[2024-06-13] MEDS: LONITEN 2.5 MG PO ×2 (08:41→19:44)
[2024-06-13] MEDS: LASIX 40 MG IV ×2 (08:41→16:34)
[2024-06-13] MEDS: FARXIGA 10 MG PO (08:41)
[2024-06-13] MEDS: PLAVIX 75 MG PO (08:41)
[2024-06-13] MEDS: INSPRA 25 MG PO (08:41)
--- NOTE | 2024-06-13 09:22 | W.PN.HOSP.TC ---
Today's Communication/Plan
-
IV Lasix. Start Celexa. Start nicotine patch.
Assessment / Plan
Assessment / Plan
Physical exam:
General: Well Developed, Well Nourished and No Apparent Distress
HEENT: Normocephalic, Atraumatic and Moist Mucous Membranes
Respiratory: Clear to Auscultation; Negative Wheezes, Rales or Rhonchi
Cardiac: Regular Rhythm and S1/S2
GI: Soft, Nontender and Nondistended
Musculoskeletal: No Clubbing, No Cyanosis. Bilateral lower extremity Edema
Neuro: Awake, Alert and Oriented
Psych: Calm
A/P:
Acute Hypoxic Respiratory Failure secondary to Acute Heart Failure
-Continue supplemental oxygen via BiPAP
Acute on Chronic HFpEF
-Consult Cardiology
-Echo 06/06/2024: Moderate concentric left ventricular hypertrophy. Hypokinesis of the inferior wall. LV ejection fraction 50-55%
-Continue Lasix 40mg IV BID
-Continue Farxiga
-Monitor Is&Os and Daily Weights
-When I saw him cardiology has seen him but he does not recall recommendations from cardiology. I sat down and discussed with him at length but I am not sure how much he is understanding about heart failure education.
-Discussed with cardiology today on 06/13
-Discussed with at length at bedside today on 06/13
-Discussed about lifestyle changes and CHF education and advised stop smoking and alcohol with at bedside. Start nicotine patch.
Depression
Will start him on Celexa 10 mg p.o. daily
ASCVD (CAD s/p R RCA stent, Right CEA, Prior Midbrain CVA)
-Continue aspirin and Plavix
Hyperaldosteronism
-Continue eplerenone
Hypertension
-Continue Coreg and Minoxidil
Hyperlipidemia
-Continue Crestor
COPD, no acute exacerbation
-Continue Pulmicort and DuoNeb in place of Trelegy
DVT proph: Lovenox
Code Status: Full Code
Total time spent on today's encounter was 52 minutes which included time spent in counseling the patient/family regarding diagnosis and treatment plan as listed above, goals of care, and symptom management. Case was discussed with nursing staff,
specialists, and care coordinators/case management. All labs and imaging personally reviewed by me. Remainder the time spent in detailed review of previous records, lab data, imaging, and other medical provider documentation.
Anticipated Discharge: 24 - 48 hours
Subjective/Interval History
-
Date of Service: June 13, 2024
Patient feels better, less shortness of breath. No chest pain
Objective Data
-
Labs:
Laboratory Results
06/13/24
04:29
Sodium 140
Potassium 3.5
Chloride 99
Carbon Dioxide 33 H
BUN 29 H
Creatinine 1.1
Glucose 93
Calcium 9.2
Vital Signs:
Vital Signs
Temp Pulse Resp BP Pulse Ox
98.0 F 66 17 144/71 97
06/13/24 07:14 06/13/24 08:41 06/13/24 08:02 06/13/24 08:41 06/13/24 08:02
I&O
06/12/24 06/13/24 06/14/24
06:59 06:59 06:59
Intake Total 1440 / 1440 600 / 600
Output Total 1974 3525 / 3525 400 / 400
Balance -1974 -1974 -2084 / 200 / 200
--- NOTE | 2024-06-13 11:19 | PTCARENOTE ---
Assumed care of patient at beginning of this shift from previous RN. SB/SR on monitor with 1st degree HB: NV measuring 0.24. Patient tearful when speaking about cardiac history and current hospital stay; emotional support provided. in and asked
to speak with physician; tiger text sent to Dr Godoy with 's name and phone number. See worklist for full assessment and vital signs.
[2024-06-13] MEDS: CELEXA 10 MG PO (13:15)
[2024-06-13] MEDS: NICODERM TRANSDERMAL 14 MG TRANSDERM (13:15)
[2024-06-13] MEDS: CRESTOR 40 MG PO (17:02)
[2024-06-13] MEDS: LOVENOX 40 MG SC (17:02)
--- NOTE | 2024-06-13 22:00 | RESPNOTE ---
PT is ordered for BIPAP for HS use. PT is refusing therapy at this time. PT states that he cannot tolerate and will not wear it tonight, or any other night. BIPAP was removed form the room and will supply a machine if the PT changes his mind.
[2024-06-14] VITALS (13 sets, daily range): BP systolic 119–169; BP diastolic 67–102; BMI 36.2
[2024-06-14 04:45] LABS: Blood Urea Nitrogen 31 mg/dl (9-20); Calcium 9.1 mg/dl (8.4-10.2); Carbon Dioxide 33 mmol/L (22-30); Chloride 99 mmol/L (98-107); Estimated Creatinine Clearance 89 ml/min; Glucose 94 mg/dl (70-99); Potassium 3.4 mmol/L (3.5-5.1); Sodium 141 mmol/L (135-145); eGFR > 60.00
--- NOTE | 2024-06-14 06:40 | PTCARENOTE ---
NO acute events overnight. 2 liters NC placed while asleep for pulsox in the high 80s.
[2024-06-14] MEDS: PULMICORT 0.5 MG INH ×2 (07:42→19:10)
[2024-06-14] MEDS: DUONEB 3 ML INH ×4 (07:42→19:10)
[2024-06-14] MEDS: ASPIR LOW (ENTERIC COATED) 81 MG PO (08:25)
[2024-06-14] MEDS: PLAVIX 75 MG PO (08:25)
[2024-06-14] MEDS: COREG 12.5 MG PO (08:25)
[2024-06-14] MEDS: FARXIGA 10 MG PO (08:25)
[2024-06-14] MEDS: LASIX 40 MG IV ×2 (08:26→15:41)
[2024-06-14] MEDS: NICODERM TRANSDERMAL 14 MG TRANSDERM (08:26)
[2024-06-14] MEDS: CELEXA 10 MG PO (08:26)
[2024-06-14] MEDS: LONITEN 2.5 MG PO ×2 (08:26→20:28)
[2024-06-14] MEDS: INSPRA 25 MG PO (08:26)
--- NOTE | 2024-06-14 09:12 | W.PN.HOSP.TC ---
Today's Communication/Plan
-
IV diuretics.
Assessment / Plan
Assessment / Plan
Physical exam:
General: Acute on chronically ill
HEENT: Normocephalic, Atraumatic and Moist Mucous Membranes
Respiratory: Coarse crackles in the bases; Negative Wheezes, Rales or Rhonchi
Cardiac: Regular Rhythm and S1/S2
GI: Soft, Nontender and Nondistended
Musculoskeletal: No Clubbing, No Cyanosis. Bilateral lower extremity Edema
Neuro: Awake, Alert and Oriented
Psych: Calm
A/P:
Acute Hypoxic Respiratory Failure secondary to Acute Heart Failure
-Continue supplemental oxygen as needed
-Off BiPAP
Acute on Chronic HFpEF
IV diuretics, Lasix 40 mg twice a day
BNP upon admission 1960
Known history recovered ischemic cardiomyopathy and in the past he was EF 40% but now improved as below
Monitor strict I/O
Monitor daily weight
Monitor renal function and electrolytes
Reviewed latest echocardiogram on our system with 50 to 55% EF on 06/06
Continue guideline-directed medical therapy for heart failure (GDMT)--> on and
Fluid restriction
Salt restriction
Heart failure education
Follow up clinical response
Cardiology consult appreciated
Noncompliance with heart failure recommendations
Discussed with at bedside on 06/13 and went over lifestyle changes and heart failure education
Elevated troponin:
Elevated troponin due to non-ischemic myocardial injury
Depression and anxiety:
Continue on Celexa 10 mg p.o. daily
Continue benzodiazepines as needed
Nicotine addiction:
Continue nicotine patch
Alcohol use disorder:
Advised quit drinking completely
CAD:
Chest pain-free
Continue anti-ischemic regimen
Inferior wall CT s/p prox RCA PCI 10/30/17
s/p mid circ to OM3 stent 12/13/17
Hypertension:
Continue home antihypertensives.
Monitor blood pressure and adjust medications accordingly.
Hyperlipidemia:
Continue home statins
Peripheral vascular disease:
Continue antiplatelets and statins
Status post right CEA 01/2024
TIA:
Continue antiplatelets and statin
COPD:
Continue Pulmicort
Continue bronchodilators as needed
Assess home oxygen needs upon discharge
Morbid obesity:
Lifestyle changes modifications warranted
RODERICK:
Untreated
Will require sleep testing as outpatient and reevaluate treatment
DVT prophylaxis:
Lovenox SQ
CODE STATUS:
Full code
Total time spent on today's encounter was 52 minutes which included time spent in counseling the patient/family regarding diagnosis and treatment plan as listed above, goals of care, and symptom management. Case was discussed with nursing staff,
specialists, and care coordinators/case management. All labs and imaging personally reviewed by me. Remainder the time spent in detailed review of previous records, lab data, imaging, and other medical provider documentation.
Anticipated Discharge: 24 - 48 hours
Subjective/Interval History
-
Date of Service: June 14, 2024
Patient feels better overall. Less shortness of breath. No chest pain
Objective Data
-
Labs:
Laboratory Results
06/14/24
04:02
Sodium 141
Potassium 3.4 L
Chloride 99
Carbon Dioxide 33 H
BUN 31 H
Creatinine 1.1
Glucose 94
Calcium 9.1
Vital Signs:
Vital Signs
Temp Pulse Resp BP Pulse Ox
97.8 F 63 18 151/82 96
06/14/24 03:59 06/14/24 07:44 06/14/24 07:44 06/14/24 08:25 06/14/24 07:44
I&O
06/13/24 06/14/24 06/15/24
06:59 06:59 06:59
Intake Total 1440 / 1440 1080 / 1080
Output Total 3525 / 3525 4800 / 4800
Balance -2084 / -2084 -0 / -3720
[2024-06-14 13:59] LABS: Hematocrit 41.7 % (39.0-52.0); Hemoglobin 14.3 g/dL (13.0-18.0); Mean Corp Hgb Conc. 34.3 g/dL (33.0-37.0); Mean Corpuscular Hgb 29.9 pg (27.0-31.0); Mean Corpuscular Volume 87.1 fL (80.0-94.0); Mean Platelet Volume 9.6 fL (7.4-10.4); Platelet Count 160 10^3/uL (130-400); Red Blood Cell Count 4.79 10^6/uL (4.70-6.10); Red Cell Dist. Width 13.5 % (11.5-14.5); White Blood Cell Count 4.8 10^3/uL (4.8-10.8)
--- NOTE | 2024-06-14 15:03 | W.PN.CARDCBS ---
Addendum entered and electronically signed by Rachelle Bautista DO 06/14/24 16:36:
Spoke with Nephrology- Plan to increase Coreg and Inspra.
Original Note:
Today's Communication / Plan
-
Improved BP control
Diuresis
Impression / Plan
-
.
PCP: Janine Nolan
Pulp Machine Operator: Dr. Bautista
Impression:
Presented with SOB
Acute hypoxic respiratory failure, on BiPAP
Acute on chronic HFpEF
NonMI trop, peak 0.2, nonischemic myocardial injury.
Significant noncompliance with diet and meds
Hx cardiac arrest (VF) 10/30/17, in-hospital with 45 minutes of resuscitation
Hx CAD
Inferior wall GA s/p prox RCA PCI 10/30/17
s/p mid circ to OM3 stent 12/13/17
Hx Recovered Ischemic CM EF 40% by v-gram 10/20/17, improved to 50-55% by echo 06/06/2024
Carotid artery disease, s/p R CEA 02/07/2024
-TIA 2009
Acute on chronic RF, improved
HTN
Dyslipidemia
Tobacco use/COPD
Hx rash w/ HCTZ, possibly lasix but has been tolerating
Depression
Morbid Obesity
RODERICK, untreated
Lexiscan nuclear stress test 08/26/2021: small area of mildly decreased counts in the inferior and inferolateral wall.� At rest, the defect was fixed with no evidence of ischemia.� EF 41% with inferior HK
Echo 09/16/2021: EF 45 to 50%, Akinetic base to mid inferolateral and base to mid inferior jennings. Mild�left�ventricular hypertrophy. �No significant valvular disease.
Echocardiogram 10/19/2022: Mildly reduced LV systolic function with basal inferolateral hypokinesis and EF 50%. Normal RV size and systolic function.
Echo 06/06/2024: EF 50 to 55%, mild concentric LVH, mild biatrial enlargement, no significant valvular disease
Plan:
Heart failure decompensation with preserved ejection fraction in the setting of diuretic noncompliance
-Volume status is starting to improve with IV Lasix
-We have thoroughly discussed HF teaching as he does not check daily wts, follow HF diet.
-Cont to monitor Is and Os, daily wts and cr.
-Oxygen requirements have improved and he is now on room air
-Can downgrade from IMU to IVU/telemetry from a cardiac standpoint
-Increase ambulation
-Continue goal-directed medical therapy: Carvedilol 12.5 mg twice daily, Farxiga 10 mg daily, Inspra 25 mg daily. He is not on an DIONNA/ARB due to history of renal insufficiency followed by Nephrology
-We discussed the need for better blood pressure control- will discuss retrial of DIONNA/ARB with Nephrology.
Known coronary artery disease with history of RCA and circumflex stenting
-No chest pain
-Troponin peaked 0.2.
-He is agreed to restart aspirin 81 mg daily
-Continue rosuvastatin and consider outpatient transition to PCSK9 inhibitor. Goal LDL less than 55 mg/dL given high risk
-Continue medical therapy of nonMI troponin.
-Pt is scheduled for OP PET/CT stress test 06/19/2024. Will keep this scheduled.
History of TIA and PAD status post right CEA 02/07/24
-Continue aspirin and Plavix.
-Aggressive lipid reduction with goal LDL less than 55 mg/dL
Tobacco dependence with reports that he recently resumed smoking cigarettes after having previously quit in September 2022
-Strongly discussed the importance of tobacco cessation and potential consequences with continued use
-Discussed method/plan for tobacco cessation
-Continue nicotine patch
Discussed with his via phone.
Discussed with primary service.
HPI: James is a 68 year old male with PMH of CAD, s/p PCI of RCA and OM3, ischemic cardiomyopathy, prior cardiac arrest, chronic HFpEF, HTN, HLD, COPD, CKD, RODERICK, and carotid artery disease s/p CEA. He presented to [facility] for evaluation of sudden
worsening SOB. He was seen in the office 05/25/2024 and noted symptoms and he was arranged for echo and stress test. He admits now that he has not been taking his torsemide as much as he is supposed to. He is prescribed torsemide 20mg daily, however
he states he takes 1/2 tablet maybe 3 times per week. He feels as though it was making him urinate too much which is why he cut it back. He also admits to dietary indiscretion with increased sodium intake. This AM he woke up and took a 1/2 tablet of
his torsemide and went to his storage unit. When he got to his storage unit, he tried to lift up the door to his unit and became extremely SOB and lightheaded. He called 911 and reportedly when EMS arrived, his pulse ox was in the 60s and he was
pale and clammy. In ER, placed on BiPAP and improving. ProBNP elevated at 1960 and chest xray shows mild-moderate pulmonary edema. He was given a dose of IV lasix in ER and has noted good diuresis. Denies chest pain. Breathing improved while on
BiPAP. He does not weigh himself daily, and weight typically around 265lbs. Weight in ER 282lbs. Cardiology consulted for evaluation given acute heart failure.
Progress Note - Pulp Machine Operator
Subjective
Date of Service: June 14, 2024
Seen and examined. SOB better- no chest pain.
Objective
Labs:
06/14/24 13:36
06/14/24 04:02
Labs
Hgb 14.3 g/dL (13.0-18.0) 06/14/24 13:36
Hct 41.7 % (39.0-52.0) 06/14/24 13:36
Plt Count 160 10^3/uL (130-400) 06/14/24 13:36
Sodium 141 mmol/L (135-145) 06/14/24 04:02
Potassium 3.4 mmol/L (3.5-5.1) L 06/14/24 04:02
BUN 31 mg/dl (9-20) H 06/14/24 04:02
Creatinine 1.1 mg/dL (0.7-1.3) 06/14/24 04:02
Glucose 94 mg/dl (70-99) 06/14/24 04:02
Troponins
06/11/24 06/11/24 06/13/24
14:46 20:39 04:29
Troponin I 0.127 H* D 0.204 H* D 0.070 H*
Vital Signs and I&O:
Vital Signs
Temp Pulse Resp BP Pulse Ox
97.6 F 59 16 151/82 93
06/14/24 11:05 06/14/24 11:21 06/14/24 11:21 06/14/24 08:25 06/14/24 11:21
Vital Signs
Temp Pulse Resp BP Pulse Ox
97.6 F 59 16 151/82 93
06/14/24 11:05 06/14/24 11:21 06/14/24 11:21 06/14/24 08:25 06/14/24 11:21
Intake & Output
06/12/24 06/13/24 06/14/24 06/15/24
06:59 06:59 06:59 06:59
Intake Total 1440 / 1440 1080 / 1080
Output Total 1974 3525 / 3525 4800 / 4800 175 / 175
Balance -1974 / -2084 / -2084 -3719 / -372 -175 / -175
Physical Exam
Physical Exam
General: No acute distress, AAOX3
Heart: Regular, positive S1/S2, No murmur
Lungs: CTA b/l, negative wheezes/rales/rhonchi
Abd: Morbid obesity. Positive BS, NT/ND, neg rebound/rigidity/guarding
Ext: +1 b/l edema
Neuro: nonfocal
--- NOTE | 2024-06-14 16:37 | CM ---
Patient with Dx Acute Hypoxic Respiratory Failure secondary to Acute Heart Failure. Room air.
CM continuing to follow.
Plan home.
[2024-06-14] MEDS: LOVENOX 40 MG SC (17:36)
[2024-06-14] MEDS: CRESTOR 40 MG PO (17:36)
[2024-06-14] MEDS: COREG 25 MG PO (20:28)
[2024-06-15] VITALS (8 sets, daily range): BP systolic 122–166; BP diastolic 70–101; BMI 36.1
[2024-06-15 06:39] LABS: Blood Urea Nitrogen 30 mg/dl (9-20); Carbon Dioxide 35 mmol/L (22-30); Chloride 98 mmol/L (98-107); Estimated Creatinine Clearance 81 ml/min; Glucose 95 mg/dl (70-99); Potassium 3.2 mmol/L (3.5-5.1); Sodium 140 mmol/L (135-145); eGFR > 60.00
--- NOTE | 2024-06-15 06:54 | PTCARENOTE ---
Pt slept well overnight. POX 87% while sleeping, 2 LO2 NC applied. Pt voiding in the urinal when needed. vital signs stable. No issues to report. Will continue to monitor.
[2024-06-15] MEDS: DUONEB 3 ML INH ×2 (07:21→11:34)
[2024-06-15] MEDS: PULMICORT 0.5 MG INH (07:21)
[2024-06-15] MEDS: NICODERM TRANSDERMAL 14 MG TRANSDERM (09:01)
[2024-06-15] MEDS: INSPRA 50 MG PO (09:03)
[2024-06-15] MEDS: PLAVIX 75 MG PO (09:03)
[2024-06-15] MEDS: COREG 25 MG PO (09:03)
[2024-06-15] MEDS: ASPIR LOW (ENTERIC COATED) 81 MG PO (09:03)
[2024-06-15] MEDS: FARXIGA 10 MG PO (09:03)
[2024-06-15] MEDS: LASIX 40 MG IV (09:04)
[2024-06-15] MEDS: CELEXA 10 MG PO (09:04)
[2024-06-15] MEDS: LONITEN 2.5 MG PO (09:04)
--- NOTE | 2024-06-15 09:12 | W.PN.HOSP.TC ---
Today's Communication/Plan
-
Discharge planning today
Assessment / Plan
Assessment / Plan
Physical exam:
General: Well Developed, Well Nourished and No Apparent Distress
HEENT: Normocephalic, Atraumatic and Moist Mucous Membranes
Respiratory: Clear to Auscultation; Negative Wheezes, Rales or Rhonchi
Cardiac: Regular Rhythm and S1/S2
GI: Soft, Nontender and Nondistended
Musculoskeletal: No Clubbing, No Cyanosis and No Edema
Neuro: Awake, Alert and Oriented
Psych: Calm
A/P:
Acute Hypoxic Respiratory Failure secondary to Acute Heart Failure
-Off oxygen
-Off BiPAP
Acute on Chronic HFpEF
IV diuretics, Lasix 40 mg twice a day--> can switch to his oral diuretic
BNP upon admission 1959
Known history recovered ischemic cardiomyopathy and in the past he was EF 40% but now improved as below
Monitor strict I/O
Monitor daily weight
Monitor renal function and electrolytes
Reviewed latest echocardiogram on our system with 50 to 55% EF on 06/06
Continue guideline-directed medical therapy for heart failure (GDMT)--> on Coreg and Inspra and Farxiga. Doses of Coreg and Inspra increased by cardiology.
Fluid restriction
Salt restriction
Heart failure education
Follow up clinical response
Cardiology consult appreciated
Noncompliance with heart failure recommendations
Discussed with at bedside on 06/13 and went over lifestyle changes and heart failure education
Elevated troponin:
Elevated troponin due to non-ischemic myocardial injury
Depression and anxiety:
Continue on Celexa 10 mg p.o. daily
Continue benzodiazepines as needed
Nicotine addiction:
Continue nicotine patch
Alcohol use disorder:
Advised quit drinking completely
CAD:
Chest pain-free
Continue anti-ischemic regimen
Inferior wall IA s/p prox RCA PCI 10/30/17
s/p mid circ to OM3 stent 12/13/17
Hypertension:
Continue home antihypertensives.
Monitor blood pressure and adjust medications accordingly.
Hyperlipidemia:
Continue home statins
Peripheral vascular disease:
Continue antiplatelets and statins
Status post right CEA 01/2024
TIA:
Continue antiplatelets and statin
COPD:
Continue Pulmicort
Continue bronchodilators as needed
Assess home oxygen needs upon discharge
Morbid obesity:
Lifestyle changes modifications warranted
RODERICK:
Untreated
Will require sleep testing as outpatient and reevaluate treatment
DVT prophylaxis:
Lovenox SQ
CODE STATUS:
Full code
Anticipated Discharge: Today
Subjective/Interval History
-
Date of Service: June 15, 2024
Patient denies any chest pain or shortness of breath.
Objective Data
-
Labs:
Laboratory Results
06/15/24
06:02
Sodium 140
Potassium 3.2 L
Chloride 98
Carbon Dioxide 35 H
BUN 30 H
Creatinine 1.2
Glucose 95
Calcium 9.0
Vital Signs:
Vital Signs
Temp Pulse Resp BP Pulse Ox
97.9 F 67 16 166/81 94
06/15/24 07:20 06/15/24 09:03 06/15/24 07:24 06/15/24 09:03 06/15/24 07:24
I&O
06/14/24 06/15/24 06/16/24
06:59 06:59 06:59
Intake Total 1080 / 1080 655 / 655
Output Total 4800 / 4800 2225 / 2225
Balance -3720 / -3720 -1570 / -1570
--- NOTE | 2024-06-15 10:02 | W.PN.CARDCBS ---
Today's Communication / Plan
-
D/C home
Cardiology follow up to be arranged
Repeat BMP in one week
PET/STRESS as scheduled
TOB cessation
Home BP monitoring
Impression / Plan
-
.
PCP: Janine Nolan
Production Artist: Dr. Bautista
Impression:
Presented with SOB
Acute hypoxic respiratory failure, on BiPAP
Acute on chronic HFpEF
NonMI trop, peak 0.2, nonischemic myocardial injury.
Significant noncompliance with diet and meds
Hx cardiac arrest (VF) 10/30/17, in-hospital with 45 minutes of resuscitation
Hx CAD
Inferior wall [place] s/p prox RCA PCI 10/30/17
s/p mid circ to OM3 stent 12/13/17
Hx Recovered Ischemic CM EF 40% by v-gram 10/20/17, improved to 50-55% by echo 06/06/2024
Carotid artery disease, s/p R CEA 02/07/2024
-TIA 2009
Acute on chronic RF, improved
HTN
Dyslipidemia
Tobacco use/COPD
Hx rash w/ HCTZ, possibly lasix but has been tolerating
Depression
Morbid Obesity
RODERICK, untreated
Lexiscan nuclear stress test 08/26/2021: small area of mildly decreased counts in the inferior and inferolateral wall.� At rest, the defect was fixed with no evidence of ischemia.� EF 41% with inferior HK
Echo 09/16/2021: EF 45 to 50%, Akinetic base to mid inferolateral and base to mid inferior jennings. Mild�left�ventricular hypertrophy. �No significant valvular disease.
Echocardiogram 10/19/2022: Mildly reduced LV systolic function with basal inferolateral hypokinesis and EF 50%. Normal RV size and systolic function.
Echo 06/06/2024: EF 50 to 55%, mild concentric LVH, mild biatrial enlargement, no significant valvular disease
Plan:
Heart failure decompensation with preserved ejection fraction in the setting of diuretic noncompliance
-Volume status has improved with IV lasix
- 17 lb weight loss since admission; weight today 265lbs
-We have thoroughly discussed HF teaching as he does not check daily wts, follow HF diet.
-Cont to monitor Is and Os, daily wts and cr.
-Oxygen requirements have improved and he is now on room air
-Increase ambulation- RN to observe ambulate
-Continue goal-directed medical therapy: Carvedilol 25 mg twice daily, Farxiga 10 mg daily, Inspra 50mg daily.
-Resume Torsemide 20mg daily
-Repeat BNP today. Repeat BMP in one week with Mag
-He is not on an DIONNA/ARB due to history of renal insufficiency followed by Nephrology
Known coronary artery disease with history of RCA and circumflex stenting
-No chest pain
-Troponin peaked 0.2.
-He is agreed to restart aspirin 81 mg daily
-Continue rosuvastatin and consider outpatient transition to PCSK9 inhibitor. Goal LDL less than 55 mg/dL given high risk
-Continue medical therapy of nonMI troponin.
-Pt is scheduled for OP PET/CT stress test 06/19/2024. Will keep this scheduled.
History of TIA and PAD status post right CEA 02/07/24
-Continue aspirin and Plavix.
-Aggressive lipid reduction with goal LDL less than 55 mg/dL
Tobacco dependence with reports that he recently resumed smoking cigarettes after having previously quit in September 2022
-Strongly discussed the importance of tobacco cessation and potential consequences with continued use
-Discussed method/plan for tobacco cessation
-Continue nicotine patch
Discussed with his via phone.
Discussed with primary service.
Plan for D/C home today
HPI: James is a 68 year old male with PMH of CAD, s/p PCI of RCA and OM3, ischemic cardiomyopathy, prior cardiac arrest, chronic HFpEF, HTN, HLD, COPD, CKD, RODERICK, and carotid artery disease s/p CEA. He presented to [facility] for evaluation of sudden
worsening SOB. He was seen in the office 05/25/2024 and noted symptoms and he was arranged for echo and stress test. He admits now that he has not been taking his torsemide as much as he is supposed to. He is prescribed torsemide 20mg daily, however
he states he takes 1/2 tablet maybe 3 times per week. He feels as though it was making him urinate too much which is why he cut it back. He also admits to dietary indiscretion with increased sodium intake. This AM he woke up and took a 1/2 tablet of
his torsemide and went to his storage unit. When he got to his storage unit, he tried to lift up the door to his unit and became extremely SOB and lightheaded. He called 911 and reportedly when EMS arrived, his pulse ox was in the 60s and he was
pale and clammy. In ER, placed on BiPAP and improving. ProBNP elevated at 1960 and chest xray shows mild-moderate pulmonary edema. He was given a dose of IV lasix in ER and has noted good diuresis. Denies chest pain. Breathing improved while on
BiPAP. He does not weigh himself daily, and weight typically around 265lbs. Weight in ER 282lbs. Cardiology consulted for evaluation given acute heart failure.
Progress Note - Production Artist
Subjective
Date of Service: June 15, 2024
Seen and examined. Feels better with resolved SOB and edema. No CP.
Objective
Labs:
06/14/24 13:36
06/15/24 06:02
Labs
Hgb 14.3 g/dL (13.0-18.0) 06/14/24 13:36
Hct 41.7 % (39.0-52.0) 06/14/24 13:36
Plt Count 160 10^3/uL (130-400) 06/14/24 13:36
Sodium 140 mmol/L (135-145) 06/15/24 06:02
Potassium 3.2 mmol/L (3.5-5.1) L 06/15/24 06:02
BUN 30 mg/dl (9-20) H 06/15/24 06:02
Creatinine 1.2 mg/dL (0.7-1.3) 06/15/24 06:02
Glucose 95 mg/dl (70-99) 06/15/24 06:02
Troponins
06/13/24
04:29
Troponin I 0.070 H*
Vital Signs and I&O:
Vital Signs
Temp Pulse Resp BP Pulse Ox
97.9 F 67 16 166/81 94
06/15/24 07:20 06/15/24 09:03 06/15/24 07:24 06/15/24 09:03 06/15/24 07:24
Vital Signs
Temp Pulse Resp BP Pulse Ox
97.9 F 67 16 166/81 94
06/15/24 07:20 06/15/24 09:03 06/15/24 07:24 06/15/24 09:03 06/15/24 07:24
Intake & Output
06/13/24 06/14/24 06/15/24 06/16/24
06:59 06:59 06:59 06:59
Intake Total 1440 / 1440 1080 / 1080 655 / 655
Output Total 3525 / 3525 4800 / 4800 2225 / 2225 200 / 200
Balance -2085 / -2085 -3720 / -3720 -1570 / -1570 -200 / -200
Physical Exam
Physical Exam
General: No acute distress, AAOX3
Heart: Regular, positive S1/S2, No murmur
Lungs: CTA b/l, negative wheezes/rales/rhonchi
Abd: Morbid obesity. Positive BS, NT/ND, neg rebound/rigidity/guarding
Ext: no edema
Neuro: nonfocal
[2024-06-15] MEDS: KCL 40 MEQ PO (10:21)
--- NOTE | 2024-06-15 11:04 | W.DCSUMMARY ---
Discharge Summary
Discharge Data
Date of Admission: 06/11/24
Date of Discharge: 06/15/24
-
Pending Results: No
Hospital Course
Patient is 68-year-old male history of CAD, ischemic cardiomyopathy, prior cardiac arrest, CHF, hypertension, hyperlipidemia, COPD, CKD, RODERICK, PVD presented to the hospital shortness of breath and found to be in acute heart failure exacerbation.
Prior to admission patient has stopped his diuretics and had not been compliant with heart failure lifestyle. Patient was placed on BiPAP upon admission and started on IV diuresis. Cardiology was consulted. There was no need to repeat
echocardiogram since 1 was done recently. His weight upon discharge is 120.5 kg from his admission weight at 128 kg. Patient was diuresed appropriately. His heart failure medications were adjusted by cardiology specifically increased eplerenone
and carvedilol doses. Cardiology recommended to go back to his home doses of torsemide. We had lengthy discussions about quit smoking and alcohol. We also went at length in terms of lifestyle changes modifications according to heart failure.
Otherwise, patient is feeling symptomatically much improved and is hemodynamically stable. Cardiology has cleared him for discharge today. He will be discharged in stable condition today.
Discharge duration: 35 minutes
Discharge Plan
-
Patient Disposition: Home (Routine Discharge)
Discharge Diagnosis/Procedures: Acute on chronic diastolic congestive heart failure. Nonischemic myocardial injury. History of cardiac arrest in the past.
Diet: 2 Gram Sodium and Restrict fluids to 48 oz
Activity: As tolerated
Driving Restrictions: As prior to admission
Bathing Restrictions: None
Specialty Instructions: Weigh Daily- Call MD for wt gain/loss 3 lbs overnight/5 lbs in 1 week
Instructions: *[facility] Heart Failure Instructions
Referrals:
Primary care, provider [Other] (See less than 1 week)
Nella Chau PA-C [Specified Professional Personl] - 06/20/24 3:00 pm (You have a cardiology follow-up appointment at the [facility] office with Dr. Bautista's physician customer care assistant, Nella. Please call with questions)
Prescriptions:
New
carvedilol 25 mg Tablet
25 mg PO BID 30 Days Qty: 60 0RF
nicotine 14 mg/24 hr Patch 24 Hour
14 mg transdermal DAILY 7 Days Qty: 7 0RF
citalopram 10 mg Tablet
10 mg PO DAILY 30 Days Qty: 30 0RF
eplerenone 25 mg Tablet
50 mg PO DAILY 30 Days Qty: 60 0RF
Continued
aspirin 81 MG tablet,delayed release (DR/EC)
81 mg PO DAILY
rosuvastatin [Crestor] 40 MG tablet
40 mg PO QPM
clopidogrel 75 MG tablet
75 mg PO DAILY Qty: 30 11RF
minoxidil 2.5 MG tablet
2.5 mg PO BID
dapagliflozin propanediol [Farxiga] 10 mg Tablet
10 mg PO DAILY
Trelegy Ellipta 100-62.5-25 mcg Blister With Device
1 inh INHALATION DAILY PRN (Reason: ALLERGIES/SOB)
torsemide 20 mg Tablet
20 mg PO DAILY
albuterol sulfate 90 mcg/actuation Hfa Aerosol Inhaler
2 puff INHALATION R Q6HPRN PRN (Reason: sob)
Discontinued
carvedilol [Coreg] 12.5 mg Tablet
12.5 mg PO BID
eplerenone 25 mg Tablet
25 mg PO DAILY
Discharge Orders:
Discharge Patient (As Directed); Ordered 06/15/24
Ordered By: Nba Godoy
Discharge Date and Time
Discharge Date/Time: 06/15/24 14:45
Print Language: SOMALI
[2024-06-15 11:59] LABS: NT-proBNP 757 pg/ml
--- NOTE | 2024-06-15 12:06 | CM ---
Met with patient who was preparing for d/c. The patient says he feels ready to go home today. IMM completed. His will provide transport home.
No CM d/c needs identified.
Plan home today.
--- NOTE | 2024-06-18 10:41 | W.HF.CON ---
Heart Failure
- LV Function
Left ventricular function study result: LV Ejection fraction >/= 50%
Ejection Fraction Percentage: 50-55
- ARNI
Patient already on ARNI: No
Heart Failure ARNI Not Indicated: LV Ejection Fraction >/= 40%
- ACEI/ARB
Patient already on ACEI/ARB: No
Heart Failure ACEI/ARB Not Indicated: LV Ejection Fraction > 40%
- Beta Joan
Patient already on Evidence Based Beta Joan: Yes
- Mineralocorticord Receptor Antagonist
Patient already on MRA: Yes
- SGLT-2 Inhibitor
Patient already on SGLT-2 Inhibitor: Yes
- NYHA CHF Classification
NYHA CHF Classification Level: Class III - Symptoms w/ min exertion, interferes w/ nml daily activity (current smoker)
- ACC/AHA Stage
ACC/AHA Stage: Stage C: Symptomatic Heart Failure
== END 2024-06-15 14:45 | disposition home or self-care (01) | DRG 291 ==
LOC: IMU 13:09
PROVIDERS: Internal Medicine Cardiovascular Disease; Physician Assistant Medical; ADMITTING PHYSICIAN Hospitalist; ATTENDING PHYSICIAN Hospitalist; CONSULT PHYSICIAN Nuclear Medicine Nuclear Cardiology; EMERGENCY PHYSICIAN Emergency Medicine
PROC: 5A09357 Assistance with Respiratory Ventilation, Less than 24 Consecutive Hours, Continuous Positive Airway Pressure (ICD-10-PCS; 2024-06-11)
DX: I13.0 Hypertensive heart and chronic kidney disease with heart failure and stage 1 through stage 4 chronic kidney disease, or unspecified chronic kidney disease (principal); I50.33 Acute on chronic diastolic (congestive) heart failure; J96.01 Acute respiratory failure with hypoxia; I16.1 Hypertensive emergency; I25.10 Atherosclerotic heart disease of native coronary artery without angina pectoris; G47.33 Obstructive sleep apnea (adult) (pediatric); E78.00 Pure hypercholesterolemia, unspecified; J44.9 Chronic obstructive pulmonary disease, unspecified; E26.9 Hyperaldosteronism, unspecified; N18.9 Chronic kidney disease, unspecified; F17.210 Nicotine dependence, cigarettes, uncomplicated; T50.1X6A Underdosing of loop [high-ceiling] diuretics, initial encounter; I5A Non-ischemic myocardial injury (non-traumatic); I25.5 Ischemic cardiomyopathy; E66.01 Morbid (severe) obesity due to excess calories; F32.A Depression, unspecified; F41.9 Anxiety disorder, unspecified; I73.9 Peripheral vascular disease, unspecified; I25.2 Old myocardial infarction; Z95.5 Presence of coronary angioplasty implant and graft; Z96.641 Presence of right artificial hip joint; Z95.820 Peripheral vascular angioplasty status with implants and grafts; Z91.199 Patient's noncompliance with other medical treatment and regimen due to unspecified reason; Z86.73 Personal history of transient ischemic attack (TIA), and cerebral infarction without residual deficits; Z88.2 Allergy status to sulfonamides; Z86.74 Personal history of sudden cardiac arrest; Z82.49 Family history of ischemic heart disease and other diseases of the circulatory system; Z79.899 Other long term (current) drug therapy; Z79.51 Long term (current) use of inhaled steroids; Z79.02 Long term (current) use of antithrombotics/antiplatelets; Z79.82 Long term (current) use of aspirin
CPT/HCPCS: 71045; 80048; 80061; 83735; 83880; 84443; 84484; 85025; 85027; 93005; 94640; 94660; 96374; 99291

== ENCOUNTER → 2024-09-26 08:36 | Outpatient (REF) | payer OTHER, SELFPAY | LOC: RAD 08:36 | PROVIDERS: ATTENDING PHYSICIAN Surgery Vascular Surgery; FAMILY PHYSICIAN Specialist | DX: I65.23 Occlusion and stenosis of bilateral carotid arteries (principal) | CPT/HCPCS: 93880 ==

== ENCOUNTER → 2025-03-27 08:46 | Outpatient (REF) | payer OTHER, SELFPAY | LOC: RAD 08:46 | PROVIDERS: ATTENDING PHYSICIAN Registered Nurse | DX: I65.23 Occlusion and stenosis of bilateral carotid arteries (principal) | CPT/HCPCS: 93880 ==